=== PATIENT | female | born 2000 | race Caucasian/White ===

== ENCOUNTER 2023-06-29 05:16 | Inpatient (IN) ==
[2023-06-29] MEDS ORDERED: LIDOCAINE 1% LOCAL 20 ML VIAL INFIL PRN (06:01)
[2023-06-29] MEDS ORDERED: OXYTOCIN 30 UNITS/NSS 30 UNITS/500 ML BAG IV PRN (06:01)
[2023-06-29 06:44] LABS: Hematocrit (blood only) 33.8 % (37.0-47.0); Hemoglobin 11.1 g/dl (12.0-16.0); Mean Corpuscular Hemoglobin 29.1 pg (25.0-34.0); Mean Corpuscular Hgb Conc 32.8 g/dL (32.0-36.0); Mean Corpuscular Volume 88.7 fL (80.0-100.0); Mean Platelet Volume 12.1 fL (9.4-12.4); Platelet Count 159 K/uL (130-400); RDW Standard Deviation 45.4 fL (36.4-46.3); Red Blood Count 3.81 M/uL (4.20-5.40); White Blood Count 8.32 K/ul (4.8-10.8)
[2023-06-29] MEDS: LACTATED RINGER'S 1,000 ML IV PRN (07:35)
[2023-06-29] MEDS ORDERED: ROPIVACAINE 0.5% PF 5 MG/ML 20 ML VIAL EPI PRN (07:50)
[2023-06-29] MEDS ORDERED: BUPIVACAINE 0.25% PF 30 ML VIAL EPI PRN (07:50)
[2023-06-29] MEDS ORDERED: NALOXONE HCL 1 MG in SODIUM CHLORIDE 0.9% 1,000 ML IV PRN (07:50)
[2023-06-29] MEDS ORDERED: LIDOCAINE 2% MPF LOCAL 5 ML VIAL EPI PRN (07:50)
[2023-06-29] MEDS ORDERED: fentaNYL citrate PF 100 MCG/2 ML VIAL EPI PRN (07:50)
[2023-06-29] MEDS ORDERED: NALBUPHINE HCL 5 MG in SYRINGE 0 ML IV PRN (07:50)
[2023-06-29] MEDS ORDERED: SODIUM CHLORIDE 0.9% PF INJ 10 ML VIAL EPI PRN (07:50)
[2023-06-29] MEDS ORDERED: NALOXONE HCL 0.4 MG/1 ML VIAL/CARP IV PRN (07:50)
--- NOTE | 2023-06-29 07:50 | Anesthesiology Consultation ---
Date of Service June 29, 2023 Assessment & Plan ASA ASA2 Proposed Anesthesia Anesthesia Type: Labor Epidural Risk / Benefits Reviewed With: PT / POA / Parent / Guardian, Accepts Plan and Informed Consent Obtained History Height/Weight Height: 5 ft 3 in Weight: 69.4 kg Allergies Allergy/AdvReac Type Severity Reaction Status Date / Time No Known Allergies Allergy Verified 06/28/23 14:54 Medications Home Medications Medication Instructions Recorded Confirmed Last Taken levothyroxine 25 mcg capsule 50 mcg PO DAILY 11/09/22 06/29/23 06/28/23 vit no.95-ferrous 1 tab PO DAILY 11/09/22 06/29/23 06/28/23 fumarate 28 mg-folic acid 800 mcg tablet Active Medications Generic Name Dose Route Start Last Admin Trade Name Freq PRN Reason Stop Dose Admin Lactated Ringer's 1,000 mls @ 125 mls/hr 06/29/23 06:01 06/29/23 08:24 Lr IV 07/01/23 06:00 125 mls/hr .Q8H PRN Administration L&D Protocol Protocol Past Medical History Medical History Hypothyroid Endometriosis Depression with anxiety Varicella vaccination Exercise / Class Metabolic Activity II 4-5 Yardwork/Stairs/Walk up hill Past Family History Family History Grandmother (Maternal) Thyroid disease Denies family history of Ovarian cancer Breast cancer Colorectal cancer Past Surgical History Surgical History H/O laparoscopy 06/2022, e'osis History of tonsillectomy and adenoidectomy Status post surgery cat removed from leg S/P appendectomy S/P wisdom tooth extraction S/P dilatation and curettage x2 Past Anesthesia History No Hx of Anesthesia Complications and No Family Hx of Anesthesia Complications History of PONV No Hx of PONV and No Hx of Motion Sickness Social History Smoking Status: Never smoker Do You Dip or Chew Tobacco: No Hx Alcohol Use: No Hx Substance Use: No Review of Systems denies fever/cough/ colds/ chest pain/ SOB/ LALO denies LALO Physical Exam Vital Signs Last Vital Signs Temp 36.6 C 06/29/23 06:57 Pulse 98 H 06/29/23 08:38 Resp 20 06/29/23 06:57 BP 98/58 L 06/29/23 08:38 Pulse Ox 95 06/29/23 08:38 ENMT Mouth: no TMJ abnormality and no dentition abnormality Thyromental Distance: > or= 3.5 Finger Breadths Mallampati Class: II Neck neck extension not limited Respiratory normal respiratory effort; no respiratory distress Auscultation: lungs clear to auscultation bilaterally Cardiovascular Rate/Rhythm: regular rate and regular rhythm Neurologic moves all extremities Psychiatric Orientation: alert and oriented x 3 Testing Laboratory Results 06/29/23 06:21
[2023-06-29] MEDS: LIDOCAINE 2%/EPINEPHRINE 1:200,000 20 ML PF ONE (08:16)
[2023-06-29] MEDS: BUPIVACAINE 0.25% PF 30 ML VIAL ONE (08:16)
[2023-06-29] MEDS: fentaNYL citrate PF 100 MCG/2 ML VIAL ONE (08:17)
[2023-06-29] MEDS: fentANYL 2 MCG/ML BUPIVacaine 0.125%-NSS 100ML BAG ONE (08:18)
[2023-06-29] MEDS: ePHEDrine sulfate 50 MG/ML AMP ONE (08:37)
[2023-06-29] MEDS: SODIUM CHLORIDE 0.9% PF INJ 10 ML VIAL ONE (08:37)
[2023-06-29] MEDS: ONDANSETRON INJ 2 MG/ML 2 ML VIAL IV PRN (09:04)
[2023-06-29] MEDS: ePHEDrine sulfate 50 MG/ML AMP IV PRN (09:09)
[2023-06-29] MEDS: fentaNYL citrate PF 100 MCG/2 ML VIAL EPI STA (09:10)
[2023-06-29] MEDS: BUPIVACAINE 0.25% PF 30 ML VIAL EPI STA (09:10)
[2023-06-29] MEDS: SODIUM CHLORIDE 0.9% PF INJ 10 ML VIAL EPI STA (09:11)
[2023-06-29] MEDS: LIDOCAINE 2%/EPINEPHRINE 1:200,000 20 ML PF EPI STA (09:11)
--- NOTE | 2023-06-29 10:40 | History & Physical Report ---
Date of Service June 29, 2023 Assessment & Plan (1) Normal labor and delivery: Plan Patient is stable, with loss of fluid along with "bloody show" and loss of mucus plugh, contractions 7 min apart or further, with continued, observable movement. A CBC, blood bank hold tube, and oxytocin (2 mU/min starting dose, increase 2mU/min every 30 min until contractions every 2-3 min) has been ordered. Admission and Anticipated Discharge Date Admission Date: June 29, 2023 History of Present Illness Chief Complaint: normal labor Primary Care Provider: WANG PCP , 40 weeks, 5 days confirmed via LMP. Here for vaginal delivery. Complications with this include none. PMHx includes endometriosis, depression w/ anxiety, and a varicella vaccine. Has been attending OB appointments regularly. Currently taking levothyroxine, 25 mcg, daily and pre- vitamins. Contractions: yes, 7 min apart earlier this morning Fluid or Blood loss: patient thought her "water broke", mucus plug came out, had a "bloody show" Movement: active Labs - Blood type, A+ - Antibody screen, neg - Hgb, 11.1 - Hct, 33.8 - Wbc, 8.32 - Plt, 159 - Rubella, Immune - VDRL/RPR, neg - Gonorrhea, neg - Chlamydia, neg - HIV, neg - HbSAg, neg - GBS, neg - Glucose tolerance tests: test 2 and test 3 were WNL Allergies Allergy/AdvReac Type Severity Reaction Status Date / Time No Known Allergies Allergy Verified 06/28/23 14:54 Home Medications Medication Instructions Recorded Confirmed Type levothyroxine 25 mcg capsule 50 mcg PO DAILY 11/09/22 06/29/23 History vit no.95-ferrous 1 tab PO DAILY 11/09/22 06/29/23 History fumarate 28 mg-folic acid 800 mcg tablet Past Med/Surg History Medical History Hypothyroid Endometriosis Depression with anxiety Varicella vaccination Surgical History H/O laparoscopy 06/2022, e'osis History of tonsillectomy and adenoidectomy Status post surgery cat removed from leg S/P appendectomy S/P wisdom tooth extraction S/P dilatation and curettage x2 Family History Grandmother (Maternal) Thyroid disease Denies family history of Ovarian cancer Breast cancer Colorectal cancer Social History (Updated 11/09/22 @ 10:00 by Florence Whitley) Smoking Status: Never smoker Do You Dip or Chew Tobacco: No; Hx Alcohol Use: No Hx Substance Use: No Preferred Language: American Investor Relations Director Required: No Beliefs That Will Affect Care: None marital status: marital status details: Julio C Tony (25) [phone] Current Living Situation: Spouse Current Living Situation Comment: lives with spouse, cats-spouse changing litter current occupational status: employed current occupation: Paraprofessional [employer] Other Information That Helps Us Care for You: No Feels Safe at Home: Yes Safety Concerns: Feels Safe At This Time Assistive Devices: None Review of Systems Constitutional: no fever, no chills, no fatigue and no weakness Ear, Nose, Mouth, Throat: no ear pain, no nasal discharge and no sore throat Respiratory: no cough, no chest congestion and no dyspnea Cardiovascular: + chest pain (chest pain en route (felt like past anxiety- induced CP per pt)); no palpitations and no calf pain Gastrointestinal: + nausea; no abdominal pain, no vomiting , no constipation and no diarrhea/loose stools Genitourinary: no dysuria and no urinary frequency (normal -induced increase in freq) Neurologic: + tingling (numbness/tingling, dizziness after epidural placed), + numbness and + dizziness; no headache(s) Physical Exam Constitutional: WD/WN, vitals as above Respiratory: normal respiratory effort, lungs clear to auscultation Cardiovascular: RRR, no murmur, no edema Extremities: + calf tenderness (mild r. sided calf tenderness, feels like "charley horse") Gastrointestinal (Abdomen): Inspection/Auscultation: abdomen normal to inspection, + abdomen distended (due to ) and normal bowel sounds Psychiatric: A+Ox3, euthymic affect Results & Data Results & Data Vital Signs (Past 12 Hours) Vital Signs Temp Pulse Resp BP Pulse Ox 06/29/23 10:33 103 H 98 06/29/23 10:30 109 H 93/56 L 06/29/23 10:28 104 H 97 06/29/23 10:23 135 H 96 06/29/23 10:18 112 H 96 06/29/23 10:16 85 100/58 L 06/29/23 10:13 110 H 96 06/29/23 10:11 85 94 06/29/23 10:08 97 H 95 06/29/23 10:03 99 H 97 06/29/23 09:58 90 97 06/29/23 09:57 92 H 109/65 06/29/23 09:53 98 06/29/23 09:53 81 06/29/23 09:53 99 H 101/56 L 06/29/23 09:49 83 108/63 06/29/23 09:48 90 98 06/29/23 09:44 85 18 104/58 L 06/29/23 09:43 80 100 06/29/23 09:38 81 98 06/29/23 09:37 101 H 18 103/56 L 06/29/23 09:33 100 06/29/23 09:33 85 06/29/23 09:33 80 111/57 L 06/29/23 09:29 77 18 100/59 L 06/29/23 09:28 85 100 06/29/23 09:26 102 H 18 98/57 L 06/29/23 09:24 75 18 107/56 L 06/29/23 09:23 79 100 06/29/23 09:18 77 99 06/29/23 09:15 84 98/63 L 06/29/23 09:13 95 H 96 06/29/23 09:11 85 18 101/58 L 06/29/23 09:09 83 96/57 L 06/29/23 09:08 77 96 06/29/23 09:07 82 18 72/46 L 06/29/23 09:03 94 H 97 06/29/23 09:01 78 91 06/29/23 08:58 74 99 06/29/23 08:56 36.7 C 80 20 100/56 L 06/29/23 08:53 73 94 06/29/23 08:50 78 92 06/29/23 08:48 101 H 95 06/29/23 08:45 91 H 93 06/29/23 08:43 96 H 95 06/29/23 08:40 97 H 18 92/61 L 06/29/23 08:38 98 H 18 98/58 L 95 06/29/23 08:36 103 H 97/58 L 06/29/23 08:34 110 H 97/57 L 06/29/23 08:33 103 H 97 06/29/23 08:32 107 H 18 97/54 L 06/29/23 08:30 100 H 96/56 L 06/29/23 08:28 97 06/29/23 08:28 109 H 06/29/23 08:28 103 H 18 101/59 L 06/29/23 08:26 100 H 102/63 06/29/23 08:24 100 H 18 97/61 L 06/29/23 08:23 107 H 97 06/29/23 08:22 104 H 100/59 L 06/29/23 08:20 105 H 20 97/60 L 06/29/23 08:18 98 06/29/23 08:18 113 H 06/29/23 08:18 103 H 99/61 L 06/29/23 08:16 99 H 20 99/57 L 06/29/23 08:14 110 H 119/78 06/29/23 08:13 104 H 97 06/29/23 08:12 103 H 20 109/73 06/29/23 08:08 106 H 97 06/29/23 08:03 117 H 99 06/29/23 08:02 105 H 91 06/29/23 07:58 95 H 98 06/29/23 07:53 94 H 97 06/29/23 07:48 98 H 97 06/29/23 07:43 99 H 98 06/29/23 07:38 105 H 98 06/29/23 07:33 101 H 98 06/29/23 06:57 36.6 C 98 H 20 111/70 06/29/23 05:39 95 H 103/71 06/29/23 05:33 36.6 C 18 Code Status & VTE Plan VTE Prophylaxis Plan VTE Prophylaxis will be ordered: No Supervising Physician Co-Signing Physician Notes Resident Physician Supervision Note: I interviewed and examined the patient. Discussed with Dr. Castillo and agree with findings and plan as documented in the note. Any exceptions or clarifications are listed here: 23 yo at 40 5/7 wga who was scheduled for IOL today but presented early this AM with SROM and ctx. She was admitted and received an epidural. Most recent check by nursing 4cm showing progress, augment prn. GBS neg Documented By: Constance Bee MD
[2023-06-29] MEDS: OXYTOCIN 30 UNITS/NSS 30 UNITS/500 ML BAG IV PRN (14:58)
[2023-06-29] MEDS: fentANYL 2 MCG/ML BUPIVacaine 0.125%-NSS 100ML BAG EPI PRN (15:16)
--- NOTE | 2023-06-29 15:29 | Labor Progress Brief Note ---
Date of Service June 29, 2023 Subjective more uncomfortable Assessment & Plan (1) SROM (spontaneous rupture of membranes): Plan: 23 yo at 40 5/7 wga admitted w/ srom VSS Fetus cat 1 Labor - SVE unchanged on nursing exam, starting pit GBS neg epidural in place, anesthesia called due to pain worsening Admission and Anticipated Discharge Date Admission Date: June 29, 2023 Physical Exam Genitourinary: OB Exam Monitor Tracing: + external FHT monitor used, + external uterine monitor used and + category I SVE 4/80/-2 by nursing Results & Data Vital Signs (Past 12 Hours) Vital Signs Temp Pulse Resp BP Pulse Ox 06/29/23 15:23 115 H 95 06/29/23 15:18 92 H 97 06/29/23 15:14 117 H 103/58 L 06/29/23 15:13 121 H 96 06/29/23 15:08 120 H 96 06/29/23 15:03 87 97 06/29/23 15:00 98.4 F 113 H 18 109/66 06/29/23 14:58 95 H 97 06/29/23 14:53 110 H 95 06/29/23 14:48 107 H 96 06/29/23 14:45 117 H 111/54 L 06/29/23 14:43 125 H 97 06/29/23 14:38 111 H 96 06/29/23 14:35 89 94 06/29/23 14:33 110 H 94 06/29/23 14:30 106 H 94 06/29/23 14:29 100 H 18 98/54 L 06/29/23 14:28 103 H 94 06/29/23 14:24 112 H 94 06/29/23 14:23 109 H 94 06/29/23 14:19 91 H 94 06/29/23 14:18 91 H 94 06/29/23 14:15 91 H 98/55 L 06/29/23 14:14 90 94 06/29/23 14:13 122 H 94 06/29/23 14:08 116 H 95 06/29/23 14:06 109 H 94 06/29/23 14:03 93 H 94 06/29/23 14:01 93 H 94 06/29/23 13:59 86 20 103/55 L 06/29/23 13:58 105 H 94 06/29/23 13:56 87 94 06/29/23 13:53 93 H 93 06/29/23 13:49 93 H 94 06/29/23 13:48 89 95 06/29/23 13:44 92 H 95/54 L 06/29/23 13:43 94 06/29/23 13:43 92 H 06/29/23 13:43 100 H 93 06/29/23 13:38 105 H 94 06/29/23 13:37 113 H 94 06/29/23 13:33 95 H 94 06/29/23 13:31 92 H 94 06/29/23 13:29 92 H 100/52 L 06/29/23 13:28 86 95 06/29/23 13:23 108 H 94 06/29/23 13:22 97 H 94 06/29/23 13:18 90 95 06/29/23 13:16 93 H 108/56 L 06/29/23 13:13 113 H 97 06/29/23 13:08 115 H 95 06/29/23 13:03 111 H 94 06/29/23 13:02 108 H 94 06/29/23 13:01 98.4 F 106 H 20 103/57 L 05 12:58 103 H 95 06/29/23 12:57 94 H 94 06/29/23 12:53 96 H 95 06/29/23 12:51 97 H 94 06/29/23 12:48 103 H 94 06/29/23 12:46 88 105/61 06/29/23 12:45 101 H 94 06/29/23 12:43 112 H 94 06/29/23 12:39 103 H 94 06/29/23 12:38 112 H 95 06/29/23 12:33 94 H 95 06/29/23 12:30 103 H 99/55 L 05 12:28 99 H 96 06/29/23 12:24 101 H 94 06/29/23 12:23 106 H 94 06/29/23 12:19 106 H 94 06/29/23 12:18 105 H 95 06/29/23 12:14 86 05 12:14 88 99/59 L 94 06/29/23 12:13 87 94 06/29/23 12:08 95 06/29/23 12:08 104 H 06/29/23 12:08 106 H 94 06/29/23 12:03 95 06/29/23 12:03 112 H 06/29/23 12:03 107 H 94 06/29/23 12:00 100 H 94/52 L 06/29/23 11:58 88 96 06/29/23 11:55 99 H 94 06/29/23 11:53 109 H 96 06/29/23 11:48 117 H 98 06/29/23 11:44 114 H 112/68 06/29/23 11:43 112 H 97 06/29/23 11:38 118 H 97 06/29/23 11:37 99 H 94 06/29/23 11:33 95 H 94 06/29/23 11:32 100 H 94 06/29/23 11:30 107 H 103/66 06/29/23 11:28 98 H 94 06/29/23 11:27 99 H 94 06/29/23 11:23 105 H 96 06/29/23 11:21 91 H 94 06/29/23 11:18 104 H 96 06/29/23 11:15 83 20 116/72 06/29/23 11:13 94 H 96 06/29/23 11:08 98.2 F 109 H 20 96 06/29/23 11:03 90 97 06/29/23 10:59 123 H 98/56 L 06/29/23 10:58 109 H 96 06/29/23 10:53 112 H 97 06/29/23 10:48 112 H 97 06/29/23 10:45 117 H 98/57 L 06/29/23 10:43 95 H 100 06/29/23 10:38 120 H 98 06/29/23 10:33 103 H 98 06/29/23 10:30 109 H 93/56 L 06/29/23 10:28 104 H 97 06/29/23 10:23 135 H 96 06/29/23 10:18 112 H 96 06/29/23 10:16 85 100/58 L 06/29/23 10:13 110 H 96 06/29/23 10:11 85 94 06/29/23 10:08 97 H 95 06/29/23 10:03 99 H 97 06/29/23 09:58 90 97 06/29/23 09:57 92 H 109/65 06/29/23 09:53 98 06/29/23 09:53 81 06/29/23 09:53 99 H 101/56 L 06/29/23 09:49 83 108/63 06/29/23 09:48 90 98 06/29/23 09:44 85 18 104/58 L 06/29/23 09:43 80 100 06/29/23 09:38 81 98 06/29/23 09:37 101 H 18 103/56 L 06/29/23 09:33 100 06/29/23 09:33 85 06/29/23 09:33 80 111/57 L 06/29/23 09:29 77 18 100/59 L 06/29/23 09:28 85 100 06/29/23 09:26 102 H 18 98/57 L 06/29/23 09:24 75 18 107/56 L 06/29/23 09:23 79 100 06/29/23 09:18 77 99 06/29/23 09:15 84 98/63 L 06/29/23 09:13 95 H 96 06/29/23 09:11 85 18 101/58 L 06/29/23 09:09 83 96/57 L 06/29/23 09:08 77 96 06/29/23 09:07 82 18 72/46 L 06/29/23 09:03 94 H 97 06/29/23 09:01 78 91 06/29/23 08:58 74 99 06/29/23 08:56 98.1 F 80 20 100/56 L 06/29/23 08:53 73 94 06/29/23 08:50 78 92 06/29/23 08:48 101 H 95 06/29/23 08:45 91 H 93 06/29/23 08:43 96 H 95 06/29/23 08:40 97 H 18 92/61 L 06/29/23 08:38 98 H 18 98/58 L 95 06/29/23 08:36 103 H 97/58 L 06/29/23 08:34 110 H 97/57 L 06/29/23 08:33 103 H 97 06/29/23 08:32 107 H 18 97/54 L 06/29/23 08:30 100 H 96/56 L 06/29/23 08:28 97 03/05/24 08:28 109 H 06/29/23 08:28 103 H 18 101/59 L 06/29/23 08:26 100 H 102/63 06/29/23 08:24 100 H 18 97/61 L 06/29/23 08:23 107 H 97 06/29/23 08:22 104 H 100/59 L 06/29/23 08:20 105 H 20 97/60 L 06/29/23 08:18 98 06/29/23 08:18 113 H 06/29/23 08:18 103 H 99/61 L 06/29/23 08:16 99 H 20 99/57 L 06/29/23 08:14 110 H 119/78 06/29/23 08:13 104 H 97 06/29/23 08:12 103 H 20 109/73 06/29/23 08:08 106 H 97 06/29/23 08:03 117 H 99 06/29/23 08:02 105 H 91 06/29/23 07:58 95 H 98 06/29/23 07:53 94 H 97 06/29/23 07:48 98 H 97 06/29/23 07:43 99 H 98 06/29/23 07:38 105 H 98 06/29/23 07:33 101 H 98 06/29/23 06:57 97.9 F 98 H 20 111/70 06/29/23 05:39 95 H 103/71 06/29/23 05:33 97.9 F 18 Coding Level of Care Code None Diagnoses SROM (spontaneous rupture of membranes)
[2023-06-29] MEDS: diphenhydrAMINE 50 MG/ML VIAL IV PRN (18:36)
--- NOTE | 2023-06-29 20:30 | Labor Progress Brief Note ---
Date of Service June 29, 2023 Subjective comfortable w/ epidural, sleepy from benadryl Assessment & Plan (1) SROM (spontaneous rupture of membranes): Plan: 23 yo at 40 5/7 wga admitted w/ srom VSS Fetus cat 1 Labor - pit just increased to 12. Seems like swelling is unchanged from nursing exam few hours ago, SVE around 5-5.5 w/o ctx. Cervix is about 70% effaced around remainder but thicker around 12-3. Also labia are very swollen. Discussed concerns regarding the swelling but at this point she and baby look fine, has only been on pit since 3-4 o'clock. Will try to continue repositioning to see if will help GBS neg epidural in place Admission and Anticipated Discharge Date Admission Date: June 29, 2023 Physical Exam Genitourinary: Manual OB Exam: + cervical dilation 5 cm, + cervical effacement 70% (swelling on cervix from 12-3 o'clock that is thicker) and + station -1 OB Exam Monitor Tracing: + external FHT monitor used, + external uterine monitor used (q3) and + category I (140/mod/+accel/-decel) Results & Data Vital Signs (Past 12 Hours) Vital Signs Temp Pulse Resp BP Pulse Ox O2 Del Method 06/29/23 20:19 74 95 06/29/23 20:15 79 113/64 06/29/23 20:14 91 H 96 06/29/23 20:09 82 98 06/29/23 20:04 96 H 94 06/29/23 20:00 104 H 102/62 06/29/23 19:59 100 H 94 06/29/23 19:58 99 H 94 06/29/23 19:54 100 H 92 06/29/23 19:49 95 H 94 06/29/23 19:45 88 98/54 L 06/29/23 19:44 87 94 06/29/23 19:39 93 H 93 06/29/23 19:34 87 94 06/29/23 19:32 103 H 94 06/29/23 19:31 98 H 91/53 L 06/29/23 19:30 16 06/29/23 19:30 16 06/29/23 19:29 93 H 94 06/29/23 19:26 102 H 94 06/29/23 19:24 92 H 94 06/29/23 19:21 98 H 94 06/29/23 19:19 96 H 94 06/29/23 19:16 95 H 100/56 L 94 06/29/23 19:15 Room Air 06/29/23 19:14 89 96 06/29/23 19:09 93 H 96 06/29/23 19:04 120 H 93 06/29/23 19:03 96 H 94 06/29/23 19:02 16 06/29/23 19:02 99.3 F 16 06/29/23 19:00 92 H 117/76 06/29/23 18:59 89 93 06/29/23 18:58 105 H 94 06/29/23 18:54 92 H 92 06/29/23 18:51 114 H 94 06/29/23 18:49 100 H 94 06/29/23 18:45 104 H 113/69 06/29/23 18:44 89 93 06/29/23 18:43 106 H 94 06/29/23 18:39 82 98 06/29/23 18:37 96 H 94 06/29/23 18:34 93 H 96 06/29/23 18:30 89 115/68 06/29/23 18:29 89 96 06/29/23 18:27 101 H 94 06/29/23 18:24 91 H 96 06/29/23 18:20 104 H 94 06/29/23 18:19 94 H 95 06/29/23 18:15 127 H 94/53 L 06/29/23 18:14 127 H 95 06/29/23 18:13 104 H 94 06/29/23 18:09 124 H 96 06/29/23 18:07 101 H 94 06/29/23 18:04 109 H 95 06/29/23 18:02 99 H 94 06/29/23 17:59 99.1 F 110 H 20 101/55 L 94 06/29/23 17:55 92 H 94 06/29/23 17:54 108 H 95 06/29/23 17:49 106 H 95 06/29/23 17:48 113 H 94 06/29/23 17:44 102 H 103/58 L 95 06/29/23 17:42 109 H 94 06/29/23 17:39 102 H 96 06/29/23 17:37 98 H 94 06/29/23 17:34 99 H 95 /24 17:29 95 24 17:29 108 H 03 17:29 98 H 107/60 94 06/29/23 17:24 106 H 95 06/29/23 17:23 92 H 94 06/29/23 17:19 110 H 93 06/29/23 17:18 93 H 94 06/29/23 17:14 97 H 103/62 94 06/29/23 17:13 92 H 94 06/29/23 17:09 94 H 94 06/29/23 17:07 91 H 94 06/29/23 17:04 101 H 94 06/29/23 17:01 85 94 06/29/23 16:59 101 H 101/60 94 06/29/23 16:54 108 H 93 06/29/23 16:50 93 H 94 06/29/23 16:49 91 H 94 06/29/23 16:45 118 H 94 06/29/23 16:44 101 H 104/60 95 06/29/23 16:43 20 06/29/23 16:43 99.5 F 20 06/29/23 16:39 89 94 06/29/23 16:34 105 H 94 06/29/23 16:33 97 H 95 06/29/23 16:30 96 H 101/55 L 06/29/23 16:28 92 H 95 06/29/23 16:23 91 H 96 24 16:18 98 H 96 24 16:15 100 H 109/58 L 05 16:13 104 H 96 06/29/23 16:08 87 94 06/29/23 16:03 87 95 06/29/23 16:01 111 H 94 24 16:00 20 24 16:00 20 03/0524 15:59 101 H 20 110/67 03/05 15:58 93 H 96 24 15:53 93 H 96 24 15:52 111 H 94 /24 15:48 96 H 95 03/05/24 15:46 110 H 94 03/0524 15:45 100 H 109/66 03/0524 15:43 98 H 95 03/05/24 15:40 106 H 94 03 15:38 94 H 96 03 15:33 115 H 95 06/29/23 15:29 117 H 20 106/61 06/29/23 15:28 105 H 95 06/29/23 15:23 115 H 95 06/29/23 15:18 92 H 97 06/29/23 15:14 117 H 103/58 L 06/29/23 15:13 121 H 96 06/29/23 15:08 120 H 96 06/29/23 15:03 87 97 06/29/23 15:00 98.4 F 113 H 18 109/66 06/29/23 14:58 95 H 97 06/29/23 14:53 110 H 95 06/29/23 14:48 107 H 96 06/29/23 14:45 117 H 111/54 L 06/29/23 14:43 125 H 97 06/29/23 14:38 111 H 96 06/29/23 14:35 89 94 06/29/23 14:33 110 H 94 06/29/23 14:30 106 H 94 06/29/23 14:29 100 H 18 98/54 L 06/29/23 14:28 103 H 94 06/29/23 14:24 112 H 94 06/29/23 14:23 109 H 94 06/29/23 14:19 91 H 94 06/29/23 14:18 91 H 94 06/29/23 14:15 91 H 98/55 L 06/29/23 14:14 90 94 06/29/23 14:13 122 H 94 06/29/23 14:08 116 H 95 06/29/23 14:06 109 H 94 06/29/23 14:03 93 H 94 06/29/23 14:01 93 H 94 06/29/23 13:59 86 20 103/55 L 06/29/23 13:58 105 H 94 06/29/23 13:56 87 94 06/29/23 13:53 93 H 93 06/29/23 13:49 93 H 94 06/29/23 13:48 89 95 06/29/23 13:44 92 H 95/54 L 06/29/23 13:43 94 06/29/23 13:43 92 H 06/29/23 13:43 100 H 93 03/05/24 13:38 105 H 94 06/29/23 13:37 113 H 94 06/29/23 13:33 95 H 94 06/29/23 13:31 92 H 94 06/29/23 13:29 92 H 18 100/52 L 06/29/23 13:28 86 95 06/29/23 13:23 108 H 94 06/29/23 13:22 97 H 94 06/29/23 13:18 90 95 06/29/23 13:16 93 H 108/56 L 06/29/23 13:13 113 H 97 06/29/23 13:08 115 H 95 06/29/23 13:03 111 H 94 06/29/23 13:02 108 H 94 06/29/23 13:01 98.4 F 106 H 20 103/57 L 06/29/23 12:58 103 H 95 06/29/23 12:57 94 H 94 06/29/23 12:53 96 H 95 06/29/23 12:51 97 H 94 06/29/23 12:48 103 H 94 06/29/23 12:46 88 105/61 06/29/23 12:45 101 H 94 06/29/23 12:43 112 H 94 06/29/23 12:39 103 H 94 06/29/23 12:38 112 H 95 06/29/23 12:33 94 H 95 06/29/23 12:30 103 H 18 99/55 L 06/29/23 12:28 99 H 96 06/29/23 12:24 101 H 94 06/29/23 12:23 106 H 94 06/29/23 12:19 106 H 94 06/29/23 12:18 105 H 95 06/29/23 12:14 86 06/29/23 12:14 88 99/59 L 94 06/29/23 12:13 87 94 06/29/23 12:08 95 06/29/23 12:08 104 H 06/29/23 12:08 106 H 94 06/29/23 12:03 95 06/29/23 12:03 112 H 06/29/23 12:03 107 H 94 06/29/23 12:00 100 H 18 94/52 L 06/29/23 11:58 88 96 06/29/23 11:55 99 H 94 03/05/24 11:53 109 H 96 06/29/23 11:48 117 H 98 06/29/23 11:44 114 H 112/68 06/29/23 11:43 112 H 97 06/29/23 11:38 118 H 97 06/29/23 11:37 99 H 94 06/29/23 11:33 95 H 94 06/29/23 11:32 100 H 94 06/29/23 11:30 107 H 18 103/66 06/29/23 11:28 98 H 94 06/29/23 11:27 99 H 94 06/29/23 11:23 105 H 96 06/29/23 11:21 91 H 94 06/29/23 11:18 104 H 96 06/29/23 11:15 83 20 116/72 06/29/23 11:13 94 H 96 06/29/23 11:08 98.2 F 109 H 20 96 06/29/23 11:03 90 97 06/29/23 10:59 123 H 98/56 L 06/29/23 10:58 109 H 96 06/29/23 10:53 112 H 97 06/29/23 10:48 112 H 97 06/29/23 10:45 117 H 98/57 L 06/29/23 10:43 95 H 100 06/29/23 10:38 120 H 98 06/29/23 10:33 103 H 98 06/29/23 10:30 109 H 93/56 L 06/29/23 10:28 104 H 97 06/29/23 10:23 135 H 96 06/29/23 10:18 112 H 96 06/29/23 10:16 85 100/58 L 06/29/23 10:13 110 H 96 06/29/23 10:11 85 94 06/29/23 10:08 97 H 95 06/29/23 10:03 99 H 97 06/29/23 09:58 90 97 06/29/23 09:57 92 H 109/65 06/29/23 09:53 98 06/29/23 09:53 81 06/29/23 09:53 99 H 101/56 L 06/29/23 09:49 83 108/63 06/29/23 09:48 90 98 06/29/23 09:44 85 18 104/58 L 06/29/23 09:43 80 100 06/29/23 09:38 81 98 06/29/23 09:37 101 H 18 103/56 L 06/29/23 09:33 100 06/29/23 09:33 85 06/29/23 09:33 80 111/57 L 06/29/23 09:29 77 18 100/59 L 06/29/23 09:28 85 100 06/29/23 09:26 102 H 18 98/57 L 06/29/23 09:24 75 18 107/56 L 06/29/23 09:23 79 100 06/29/23 09:18 77 99 06/29/23 09:15 84 98/63 L 06/29/23 09:13 95 H 96 06/29/23 09:11 85 18 101/58 L 06/29/23 09:09 83 96/57 L 06/29/23 09:08 77 96 06/29/23 09:07 82 18 72/46 L 06/29/23 09:03 94 H 97 06/29/23 09:01 78 91 06/29/23 08:58 74 99 06/29/23 08:56 98.1 F 80 20 100/56 L 06/29/23 08:53 73 94 06/29/23 08:50 78 92 06/29/23 08:48 101 H 95 06/29/23 08:45 91 H 93 06/29/23 08:43 96 H 95 06/29/23 08:40 97 H 18 92/61 L 06/29/23 08:38 98 H 18 98/58 L 95 06/29/23 08:36 103 H 97/58 L 06/29/23 08:34 110 H 97/57 L 06/29/23 08:33 103 H 97 06/29/23 08:32 107 H 18 97/54 L 06/29/23 08:30 100 H 96/56 L 06/29/23 08:28 97 06/29/23 08:28 109 H 06/29/23 08:28 103 H 18 101/59 L 06/29/23 08:26 100 H 102/63 Coding Level of Care Code None Diagnoses SROM (spontaneous rupture of membranes)
--- NOTE | 2023-06-29 22:24 | Labor Progress Brief Note ---
Date of Service June 29, 2023 Subjective comfortable w/ epidural Assessment & Plan (1) SROM (spontaneous rupture of membranes): Plan: 23 yo at 40 5/7 [facility] admitted w/ srom VSS Fetus cat 2, improving Labor - pit at 14, swelling has improved, still a bit at the 12 o'clock but seems softer which is an improvement. I think dilation and station also demonstrate progress. Discussed fhr with variables, now seems recovered but a bit tachy, is afebrile - ?if just recovering from the decels earlier as seems to be improving. I do think there is progress and as baby is improving I think ok to continue induction and continue repositioning measures to see if will improve. Discussed if variables return and do not recover, would need to re- eval continued induction vs delivery for healthy baby. Pt and verb alized understanding and desire to continue GBS neg epidural in place Admission and Anticipated Discharge Date Admission Date: June 29, 2023 Physical Exam Genitourinary: Manual OB Exam: + cervical dilation 6 cm, + cervical effacement 80% (the swelling at 3 o'clock has improved greatly. 12 o'clock swelling still present but softer, I think an improvement) and + station 0 OB Exam Monitor Tracing: + external FHT monitor used, + external uterine monitor used (q3) and + category II (had 10min of variables that improved with repositioning. 155- 160/mod otherw) Results & Data Vital Signs (Past 12 Hours) Vital Signs Temp Pulse Resp BP Pulse Ox O2 Del Method 06/29/23 22:22 115 H 110/56 L 06/29/23 22:19 114 H 100 06/29/23 22:14 128 H 96 06/29/23 22:09 113 H 99 06/29/23 22:04 96 06/29/23 22:04 151 H 06/29/23 22:04 142 H 89 L 06/29/23 22:00 93 H 97/58 L 06/29/23 21:59 93 06/29/23 21:59 89 06/29/23 21:59 94 H 90 06/29/23 21:54 92 H 91 06/29/23 21:49 88 93 06/29/23 21:46 88 93/57 L 06/29/23 21:44 84 93 06/29/23 21:39 88 93 06/29/23 21:34 93 H 92 06/29/23 21:30 90 16 97/57 L 06/29/23 21:29 85 93 06/29/23 21:24 82 93 06/29/23 21:19 89 93 06/29/23 21:15 93 H 95/53 L 06/29/23 21:14 110 H 94 06/29/23 21:09 90 95 06/29/23 21:05 99.1 F 06/29/23 21:04 78 93 06/29/23 21:00 83 18 108/70 06/29/23 20:59 82 93 06/29/23 20:54 102 H 93 06/29/23 20:49 91 H 93 06/29/23 20:45 83 108/63 06/29/23 20:44 83 93 06/29/23 20:39 83 94 06/29/23 20:34 81 95 06/29/23 20:30 83 16 107/67 06/29/23 20:29 75 95 06/29/23 20:24 82 95 06/29/23 20:19 74 95 06/29/23 20:15 79 113/64 06/29/23 20:14 91 H 96 06/29/23 20:09 82 98 06/29/23 20:04 96 H 94 06/29/23 20:00 104 H 16 102/62 06/29/23 19:59 100 H 94 06/29/23 19:58 99 H 94 06/29/23 19:54 100 H 92 06/29/23 19:49 95 H 94 06/29/23 19:45 88 98/54 L 06/29/23 19:44 87 94 06/29/23 19:39 93 H 93 06/29/23 19:34 87 94 06/29/23 19:32 103 H 94 06/29/23 19:31 98 H 91/53 L 06/29/23 19:30 16 06/29/23 19:30 16 06/29/23 19:29 93 H 94 06/29/23 19:26 102 H 94 06/29/23 19:24 92 H 94 06/29/23 19:21 98 H 94 06/29/23 19:19 96 H 94 06/29/23 19:16 95 H 100/56 L 94 06/29/23 19:15 Room Air 06/29/23 19:14 89 96 06/29/23 19:09 93 H 96 06/29/23 19:04 120 H 93 06/29/23 19:03 96 H 94 06/29/23 19:02 16 06/29/23 19:02 99.3 F 16 06/29/23 19:00 92 H 117/76 06/29/23 18:59 89 93 06/29/23 18:58 105 H 94 06/29/23 18:54 92 H 92 06/29/23 18:51 114 H 94 06/29/23 18:49 100 H 94 06/29/23 18:45 104 H 113/69 06/29/23 18:44 89 93 06/29/23 18:43 106 H 94 06/29/23 18:39 82 98 06/29/23 18:37 96 H 94 06/29/23 18:34 93 H 96 06/29/23 18:30 89 115/68 06/29/23 18:29 89 96 06/29/23 18:27 101 H 94 06/29/23 18:24 91 H 96 06/29/23 18:20 104 H 94 06/29/23 18:19 94 H 95 06/29/23 18:15 127 H 94/53 L 06/29/23 18:14 127 H 95 06/29/23 18:13 104 H 94 06/29/23 18:09 124 H 96 06/29/23 18:07 101 H 94 06/29/23 18:04 109 H 95 06/29/23 18:02 99 H 94 06/29/23 17:59 99.1 F 110 H 20 101/55 L 94 06/29/23 17:55 92 H 94 06/29/23 17:54 108 H 95 06/29/23 17:49 106 H 95 06/29/23 17:48 113 H 94 06/29/23 17:44 102 H 103/58 L 95 06/29/23 17:42 109 H 94 06/29/23 17:39 102 H 96 06/29/23 17:37 98 H 94 06/29/23 17:34 99 H 95 06/29/23 17:29 95 06/29/23 17:29 108 H 06/29/23 17:29 98 H 107/60 94 03/05/24 17:24 106 H 95 03/0524 17:23 92 H 94 0305 17:19 110 H 93 03 17:18 93 H 94 03 17:14 97 H 103/62 94 24 17:13 92 H 94 03 17:09 94 H 94 06/29/23 17:07 91 H 94 06/29/23 17:04 101 H 94 06/29/23 17:01 85 94 0305 16:59 101 H 101/60 94 06/29/23 16:54 108 H 93 /09/16 16:50 93 H 94 03 16:49 91 H 94 06/29/23 16:45 118 H 94 06/29/23 16:44 101 H 104/60 95 /09/16 16:43 20 06/29/23 16:43 99.5 F 20 06/29/23 16:39 89 94 06/29/23 16:34 105 H 94 06/29/23 16:33 97 H 95 0524 16:30 96 H 101/55 L 0524 16:28 92 H 95 24 16:23 91 H 96 06/29/23 16:18 98 H 96 06/29/23 16:15 100 H 109/58 L 06/29/23 16:13 104 H 96 06/29/23 16:08 87 94 06/29/23 16:03 87 95 06/29/23 16:01 111 H 94 06/29/23 16:00 20 05 16:00 20 [id number] 15:59 101 H 20 110/67 03/05/24 15:58 93 H 96 03/05/24 15:53 93 H 96 /0524 15:52 111 H 94 030524 15:48 96 H 95 03/0524 15:46 110 H 94 03/0524 15:45 100 H 109/66 03/05/24 15:43 98 H 95 03/05/24 15:40 106 H 94 03/0524 15:38 94 H 96 03/0524 15:33 115 H 95 03/05/24 15:29 117 H 20 106/61 03 15:28 105 H 95 06/29/23 15:23 115 H 95 06/29/23 15:18 92 H 97 06/29/23 15:14 117 H 103/58 L 06/29/23 15:13 121 H 96 06/29/23 15:08 120 H 96 06/29/23 15:03 87 97 06/29/23 15:00 98.4 F 113 H 18 109/66 06/29/23 14:58 95 H 97 06/29/23 14:53 110 H 95 06/29/23 14:48 107 H 96 06/29/23 14:45 117 H 111/54 L 06/29/23 14:43 125 H 97 06/29/23 14:38 111 H 96 06/29/23 14:35 89 94 06/29/23 14:33 110 H 94 06/29/23 14:30 106 H 94 06/29/23 14:29 100 H 18 98/54 L 06/29/23 14:28 103 H 94 06/29/23 14:24 112 H 94 06/29/23 14:23 109 H 94 06/29/23 14:19 91 H 94 06/29/23 14:18 91 H 94 06/29/23 14:15 91 H 98/55 L 06/29/23 14:14 90 94 06/29/23 14:13 122 H 94 06/29/23 14:08 116 H 95 06/29/23 14:06 109 H 94 06/29/23 14:03 93 H 94 06/29/23 14:01 93 H 94 06/29/23 13:59 86 20 103/55 L 06/29/23 13:58 105 H 94 06/29/23 13:56 87 94 06/29/23 13:53 93 H 93 06/29/23 13:49 93 H 94 06/29/23 13:48 89 95 06/29/23 13:44 92 H 95/54 L 06/29/23 13:43 94 06/29/23 13:43 92 H 06/29/23 13:43 100 H 93 06/29/23 13:38 105 H 94 06/29/23 13:37 113 H 94 06/29/23 13:33 95 H 94 06/29/23 13:31 92 H 94 06/29/23 13:29 92 H 18 100/52 L 06/29/23 13:28 86 95 06/29/23 13:23 108 H 94 06/29/23 13:22 97 H 94 06/29/23 13:18 90 95 06/29/23 13:16 93 H 108/56 L 06/29/23 13:13 113 H 97 06/29/23 13:08 115 H 95 06/29/23 13:03 111 H 94 06/29/23 13:02 108 H 94 06/29/23 13:01 98.4 F 106 H 20 103/57 L 06/29/23 12:58 103 H 95 06/29/23 12:57 94 H 94 06/29/23 12:53 96 H 95 06/29/23 12:51 97 H 94 06/29/23 12:48 103 H 94 06/29/23 12:46 88 105/61 06/29/23 12:45 101 H 94 06/29/23 12:43 112 H 94 06/29/23 12:39 103 H 94 06/29/23 12:38 112 H 95 06/29/23 12:33 94 H 95 06/29/23 12:30 103 H 18 99/55 L 06/29/23 12:28 99 H 96 06/29/23 12:24 101 H 94 06/29/23 12:23 106 H 94 06/29/23 12:19 106 H 94 06/29/23 12:18 105 H 95 06/29/23 12:14 86 06/29/23 12:14 88 99/59 L 94 06/29/23 12:13 87 94 06/29/23 12:08 95 06/29/23 12:08 104 H 06/29/23 12:08 106 H 94 06/29/23 12:03 95 06/29/23 12:03 112 H 06/29/23 12:03 107 H 94 06/29/23 12:00 100 H 18 94/52 L 06/29/23 11:58 88 96 06/29/23 11:55 99 H 94 06/29/23 11:53 109 H 96 06/29/23 11:48 117 H 98 06/29/23 11:44 114 H 112/68 06/29/23 11:43 112 H 97 06/29/23 11:38 118 H 97 06/29/23 11:37 99 H 94 06/29/23 11:33 95 H 94 06/29/23 11:32 100 H 94 06/29/23 11:30 107 H 18 103/66 06/29/23 11:28 98 H 94 06/29/23 11:27 99 H 94 06/29/23 11:23 105 H 96 06/29/23 11:21 91 H 94 06/29/23 11:18 104 H 96 06/29/23 11:15 83 20 116/72 06/29/23 11:13 94 H 96 06/29/23 11:08 98.2 F 109 H 20 96 06/29/23 11:03 90 97 06/29/23 10:59 123 H 98/56 L 06/29/23 10:58 109 H 96 06/29/23 10:53 112 H 97 06/29/23 10:48 112 H 97 06/29/23 10:45 117 H 98/57 L 06/29/23 10:43 95 H 100 06/29/23 10:38 120 H 98 06/29/23 10:33 103 H 98 06/29/23 10:30 109 H 93/56 L 06/29/23 10:28 104 H 97 Coding Level of Care Code None Diagnoses SROM (spontaneous rupture of membranes)
[2023-06-29] MEDS: ACETAMINOPHEN 500 MG TAB PO PRN (22:36)
--- NOTE | 2023-06-30 02:17 | Labor Progress Brief Note ---
Date of Service June 30, 2023 Subjective comfortable w/ epidural Assessment & Plan (1) SROM (spontaneous rupture of membranes): Plan: 23 yo at 40 5/7 wga admitted w/ srom VSS Fetus cat 1 Labor - pit at 14, slow change but progress definitely made in dilation. 12 o'clock swelling still present but seems like it moves with the contraction. Baby better than at last check. Given progress I think ok to continue, pt desires to continue. Of note, labia swollen due to fluid, will try ice to see if helps GBS neg epidural in place Admission and Anticipated Discharge Date Admission Date: June 29, 2023 Physical Exam Genitourinary: Manual OB Exam: + cervical dilation (7-8), + cervical effacement 80% (swelling still noted at 12 o'clock, about the same as before) and + station 0 OB Exam Monitor Tracing: + external FHT monitor used, + external uterine monitor used (q3) and + category I (130-135/mod/+accel/-decel) Results & Data Vital Signs (Past 12 Hours) Vital Signs Temp Pulse Resp BP Pulse Ox O2 Del Method 06/30/23 02:09 94 H 103/65 96 06/30/23 02:04 102 H 97 06/30/23 01:59 79 94 06/30/23 01:54 95 06/30/23 01:54 79 06/30/23 01:54 80 108/65 06/30/23 01:49 94 H 95 06/30/23 01:44 81 96 06/30/23 01:39 75 95 06/30/23 01:38 92 H 113/74 06/30/23 01:34 83 94 06/30/23 01:30 16 06/30/23 01:30 16 06/30/23 01:29 78 95 06/30/23 01:24 95 06/30/23 01:24 78 06/30/23 01:24 76 116/72 06/30/23 01:19 82 95 06/30/23 01:14 78 95 06/30/23 01:09 76 96 06/30/23 01:08 77 117/65 06/30/23 01:04 91 H 96 06/30/23 01:00 18 06/30/23 01:00 18 06/30/23 00:59 79 96 06/30/23 00:55 90 116/55 L 06/30/23 00:54 98 H 96 06/30/23 00:49 84 92 06/30/23 00:44 86 94 06/30/23 00:39 82 94 06/30/23 00:38 80 106/62 06/30/23 00:34 83 95 06/30/23 00:30 18 06/30/23 00:30 18 06/30/23 00:29 84 93 06/30/23 00:25 87 102/62 06/30/23 00:24 90 93 06/30/23 00:19 79 94 06/30/23 00:14 100 H 96 06/30/23 00:09 86 94 06/30/23 00:08 87 109/55 L 06/30/23 00:04 90 94 06/30/23 00:00 16 06/30/23 00:00 16 06/29/23 23:59 87 95 06/29/23 23:54 92 H 94 06/29/23 23:53 87 104/59 L 06/29/23 23:49 90 95 06/29/23 23:44 88 95 06/29/23 23:40 94 H 105/62 06/29/23 23:39 87 96 06/29/23 23:38 97 H 99/57 L 06/29/23 23:35 98.1 F 06/29/23 23:34 120 H 97 06/29/23 23:30 18 06/29/23 23:30 18 06/29/23 23:29 114 H 97 06/29/23 23:24 97 06/29/23 23:24 103 H 06/29/23 23:24 98 H 107/70 06/29/23 23:19 101 H 97 06/29/23 23:14 95 H 96 06/29/23 23:10 82 118/72 06/29/23 23:09 89 96 06/29/23 23:04 107 H 97 06/29/23 23:00 18 06/29/23 23:00 18 06/29/23 22:59 109 H 98 06/29/23 22:54 112 H 108/65 98 06/29/23 22:49 99 H 97 06/29/23 22:44 104 H 98 06/29/23 22:39 118 H 100 06/29/23 22:38 113 H 110/56 L 06/29/23 22:34 122 H 93 06/29/23 22:30 18 06/29/23 22:30 18 06/29/23 22:29 114 H 98 06/29/23 22:24 115 H 98 06/29/23 22:22 115 H 110/56 L 06/29/23 22:19 114 H 100 06/29/23 22:18 98.6 F 06/29/23 22:14 128 H 96 06/29/23 22:09 113 H 99 06/29/23 22:04 96 06/29/23 22:04 151 H 06/29/23 22:04 142 H 89 L 06/29/23 22:00 93 H 18 97/58 L 06/29/23 21:59 93 06/29/23 21:59 89 06/29/23 21:59 94 H 90 06/29/23 21:54 92 H 91 06/29/23 21:49 88 93 06/29/23 21:46 88 93/57 L 06/29/23 21:44 84 93 06/29/23 21:39 88 93 06/29/23 21:34 93 H 92 06/29/23 21:30 90 16 97/57 L 06/29/23 21:29 85 93 06/29/23 21:24 82 93 06/29/23 21:19 89 93 06/29/23 21:15 93 H 95/53 L 06/29/23 21:14 110 H 94 06/29/23 21:09 90 95 06/29/23 21:05 99.1 F 06/29/23 21:04 78 93 06/29/23 21:00 83 18 108/70 06/29/23 20:59 82 93 06/29/23 20:54 102 H 93 06/29/23 20:49 91 H 93 06/29/23 20:45 83 108/63 06/29/23 20:44 83 93 06/29/23 20:39 83 94 06/29/23 20:34 81 95 06/29/23 20:30 83 16 107/67 06/29/23 20:29 75 95 06/29/23 20:24 82 95 06/29/23 20:19 74 95 06/29/23 20:15 79 113/64 06/29/23 20:14 91 H 96 06/29/23 20:09 82 98 06/29/23 20:04 96 H 94 06/29/23 20:00 104 H 16 102/62 06/29/23 19:59 100 H 94 06/29/23 19:58 99 H 94 06/29/23 19:54 100 H 92 06/29/23 19:49 95 H 94 06/29/23 19:45 88 98/54 L 06/29/23 19:44 87 94 06/29/23 19:39 93 H 93 06/29/23 19:34 87 94 06/29/23 19:32 103 H 94 06/29/23 19:31 98 H 91/53 L 06/29/23 19:30 16 06/29/23 19:30 16 06/29/23 19:29 93 H 94 06/29/23 19:26 102 H 94 06/29/23 19:24 92 H 94 06/29/23 19:21 98 H 94 06/29/23 19:19 96 H 94 06/29/23 19:16 95 H 100/56 L 94 06/29/23 19:15 Room Air 06/29/23 19:14 89 96 06/29/23 19:09 93 H 96 06/29/23 19:04 120 H 93 06/29/23 19:03 96 H 94 06/29/23 19:02 16 06/29/23 19:02 99.3 F 16 06/29/23 19:00 92 H 117/76 06/29/23 18:59 89 93 06/29/23 18:58 105 H 94 06/29/23 18:54 92 H 92 06/29/23 18:51 114 H 94 06/29/23 18:49 100 H 94 06/29/23 18:45 104 H 113/69 06/29/23 18:44 89 93 06/29/23 18:43 106 H 94 06/29/23 18:39 82 98 06/29/23 18:37 96 H 94 06/29/23 18:34 93 H 96 06/29/23 18:30 89 115/68 06/29/23 18:29 89 96 06/29/23 18:27 101 H 94 06/29/23 18:24 91 H 96 06/29/23 18:20 104 H 94 06/29/23 18:19 94 H 95 06/29/23 18:15 127 H 94/53 L 06/29/23 18:14 127 H 95 06/29/23 18:13 104 H 94 06/29/23 18:09 124 H 96 06/29/23 18:07 101 H 94 06/29/23 18:04 109 H 95 06/29/23 18:02 99 H 94 06/29/23 17:59 99.1 F 110 H 20 101/55 L 94 06/29/23 17:55 92 H 94 06/29/23 17:54 108 H 95 06/29/23 17:49 106 H 95 06/29/23 17:48 113 H 94 06/29/23 17:44 102 H 103/58 L 95 06/29/23 17:42 109 H 94 06/29/23 17:39 102 H 96 06/29/23 17:37 98 H 94 06/29/23 17:34 99 H 95 06/29/23 17:29 95 06/29/23 17:29 108 H 06/29/23 17:29 98 H 107/60 94 06/29/23 17:24 106 H 95 06/29/23 17:23 92 H 94 06/29/23 17:19 110 H 93 06/29/23 17:18 93 H 94 06/29/23 17:14 97 H 103/62 94 06/29/23 17:13 92 H 94 06/29/23 17:09 94 H 94 06/29/23 17:07 91 H 94 06/29/23 17:04 101 H 94 06/29/23 17:01 85 94 06/29/23 16:59 101 H 101/60 94 24 16:54 108 H 93 06/29/23 16:50 93 H 94 06/29/23 16:49 91 H 94 06/29/23 16:45 118 H 94 06/29/23 16:44 101 H 104/60 95 06/29/23 16:43 20 06/29/23 16:43 99.5 F 20 06/29/23 16:39 89 94 06/29/23 16:34 105 H 94 06/29/23 16:33 97 H 95 03/05/24 16:30 96 H 101/55 L 06/29/23 16:28 92 H 95 06/29/23 16:23 91 H 96 06/29/23 16:18 98 H 96 06/29/23 16:15 100 H 109/58 L 06/29/23 16:13 104 H 96 06/29/23 16:08 87 94 06/29/23 16:03 87 95 06/29/23 16:01 111 H 94 06/29/23 16:00 20 06/29/23 16:00 20 06/29/23 15:59 101 H 20 110/67 03 15:58 93 H 96 06/29/23 15:53 93 H 96 06/29/23 15:52 111 H 94 06/29/23 15:48 96 H 95 06/29/23 15:46 110 H 94 06/29/23 15:45 100 H 109/66 06/29/23 15:43 98 H 95 06/29/23 15:40 106 H 94 06/29/23 15:38 94 H 96 06/29/23 15:33 115 H 95 06/29/23 15:29 117 H 20 106/61 03/09/16 15:28 105 H 95 06/29/23 15:23 115 H 95 06/29/23 15:18 92 H 97 06/29/23 15:14 117 H 103/58 L 06/29/23 15:13 121 H 96 06/29/23 15:08 120 H 96 06/29/23 15:03 87 97 06/29/23 15:00 98.4 F 113 H 18 109/66 06/29/23 14:58 95 H 97 06/29/23 14:53 110 H 95 06/29/23 14:48 107 H 96 06/29/23 14:45 117 H 111/54 L 06/29/23 14:43 125 H 97 06/29/23 14:38 111 H 96 06/29/23 14:35 89 94 06/29/23 14:33 110 H 94 06/29/23 14:30 106 H 94 24 14:29 100 H 18 98/54 L 05 14:28 103 H 94 06/29/23 14:24 112 H 94 06/29/23 14:23 109 H 94 06/29/23 14:19 91 H 94 06/29/23 14:18 91 H 94 06/29/23 14:15 91 H 98/55 L 06/29/23 14:14 90 94 06/29/23 14:13 122 H 94 Coding Level of Care Code None Diagnoses SROM (spontaneous rupture of membranes)
[2023-06-30] MEDS: diphenhydrAMINE 50 MG/ML VIAL IV STA (02:30)
[2023-06-30] MEDS: NURSING L&D Epidural Breakthrough Pain Update ONE (07:24)
--- NOTE | 2023-06-30 07:28 | Labor Progress Brief Note ---
Date of Service June 30, 2023 Subjective comfortable, some pressure Assessment & Plan (1) SROM (spontaneous rupture of membranes): Plan: 23 yo at 40 5/7 wga admitted w/ srom VSS Fetus cat 1 Labor - pit at 18, just has the anterior lip. in b/w ctx, that lip can be pushed away slightly which is reassuring. Is slightly thicker still but I think better than last exam. Progress in station as well. Will continue to try maneuvers to help move that cervix away GBS neg epidural in place Admission and Anticipated Discharge Date Admission Date: June 29, 2023 Physical Exam Genitourinary: Manual OB Exam: + cervical dilation (9.5 - anterior lip), + cervical effacement 90% and + station 0 and + 1 OB Exam Monitor Tracing: + external FHT monitor used, + external uterine monitor used (q3) and + category II (155/mod/+accel/-occ variable) Results & Data Vital Signs (Past 12 Hours) Vital Signs Temp Pulse Resp BP Pulse Ox 06/30/23 07:19 106 H 96 06/30/23 07:14 104 H 96 06/30/23 07:12 16 06/30/23 07:12 98.6 F 16 06/30/23 07:10 113 H 95/52 L 06/30/23 07:09 117 H 97 06/30/23 07:04 126 H 98 06/30/23 07:00 16 06/30/23 07:00 16 06/30/23 07:00 16 06/30/23 07:00 16 06/30/23 06:59 105 H 97 06/30/23 06:54 107 H 106/68 97 06/30/23 06:49 86 97 06/30/23 06:44 97 H 96 06/30/23 06:39 96 H 109/67 96 06/30/23 06:34 129 H 84 L 06/30/23 06:30 18 06/30/23 06:30 18 06/30/23 06:29 113 H 97 06/30/23 06:24 115 H 97 06/30/23 06:23 114 H 111/70 06/30/23 06:19 119 H 96 06/30/23 06:15 98.8 F 06/30/23 06:14 126 H 94 06/30/23 06:09 96 06/30/23 06:09 116 H 06/30/23 06:09 118 H 112/72 06/30/23 06:04 111 H 97 06/30/23 06:00 18 06/30/23 06:00 18 06/30/23 05:59 107 H 96 06/30/23 05:54 103 H 97 06/30/23 05:53 118 H 107/65 06/30/23 05:49 103 H 97 06/30/23 05:44 110 H 96 06/30/23 05:39 100 06/30/23 05:39 118 H 06/30/23 05:39 113 H 105/68 06/30/23 05:34 121 H 100 06/30/23 05:30 18 06/30/23 05:30 18 06/30/23 05:29 130 H 100 06/30/23 05:24 118 H 97 06/30/23 05:23 130 H 107/62 06/30/23 05:19 86 94 06/30/23 05:14 80 94 06/30/23 05:09 94 06/30/23 05:09 83 06/30/23 05:09 81 102/58 L 06/30/23 05:04 81 93 06/30/23 05:00 16 06/30/23 05:00 16 06/30/23 04:59 82 94 06/30/23 04:54 93 H 95 06/30/23 04:53 93 H 104/65 06/30/23 04:49 75 94 06/30/23 04:44 79 94 06/30/23 04:40 80 108/66 06/30/23 04:39 76 96 06/30/23 04:34 79 97 06/30/23 04:30 16 06/30/23 04:30 16 06/30/23 04:29 81 97 06/30/23 04:24 94 H 97 06/30/23 04:23 82 99/61 L 06/30/23 04:19 81 96 06/30/23 04:15 98.6 F 06/30/23 04:14 93 H 97 06/30/23 04:11 93 H 97/61 L 06/30/23 04:09 124 H 95 06/30/23 04:04 91 H 98 06/30/23 04:00 16 06/30/23 04:00 16 06/30/23 03:59 88 94 06/30/23 03:54 94 06/30/23 03:54 83 06/30/23 03:54 75 107/62 06/30/23 03:49 94 H 95 06/30/23 03:44 93 H 94 06/30/23 03:39 92 H 98/54 L 94 06/30/23 03:34 83 94 06/30/23 03:29 93 H 93 06/30/23 03:24 94 06/30/23 03:24 88 06/30/23 03:24 80 99/51 L 06/30/23 03:19 93 H 93 06/30/23 03:14 86 93 06/30/23 03:09 88 91/55 L 93 06/30/23 03:04 109 H 94 06/30/23 02:59 94 H 92 06/30/23 02:54 94 H 94 06/30/23 02:53 94 H 90/54 L 06/30/23 02:49 87 94 06/30/23 02:44 94 H 93 06/30/23 02:39 94 06/30/23 02:39 94 H 06/30/23 02:39 88 100/57 L 06/30/23 02:34 89 93 06/30/23 02:30 16 06/30/23 02:30 16 06/30/23 02:29 94 H 95 06/30/23 02:24 97 H 95 06/30/23 02:23 89 88/53 L 06/30/23 02:19 99 H 95 06/30/23 02:14 104 H 96 06/30/23 02:10 98.2 F 06/30/23 02:09 94 H 103/65 96 06/30/23 02:04 102 H 97 06/30/23 02:00 18 06/30/23 02:00 18 06/30/23 01:59 79 94 06/30/23 01:54 95 06/30/23 01:54 79 06/30/23 01:54 80 108/65 06/30/23 01:49 94 H 95 06/30/23 01:44 81 96 06/30/23 01:39 75 95 06/30/23 01:38 92 H 113/74 06/30/23 01:34 83 94 06/30/23 01:30 16 06/30/23 01:30 16 06/30/23 01:29 78 95 06/30/23 01:24 95 06/30/23 01:24 78 06/30/23 01:24 76 116/72 06/30/23 01:19 82 95 06/30/23 01:14 78 95 06/30/23 01:09 76 96 06/30/23 01:08 77 117/65 06/30/23 01:04 91 H 96 06/30/23 01:00 18 06/30/23 01:00 18 06/30/23 00:59 79 96 06/30/23 00:55 90 116/55 L 06/30/23 00:54 98 H 96 06/30/23 00:49 84 92 06/30/23 00:44 86 94 06/30/23 00:39 82 94 06/30/23 00:38 80 106/62 06/30/23 00:34 83 95 06/30/23 00:30 18 06/30/23 00:30 18 06/30/23 00:29 84 93 06/30/23 00:25 87 102/62 06/30/23 00:24 90 93 06/30/23 00:19 79 94 06/30/23 00:14 100 H 96 06/30/23 00:09 86 94 06/30/23 00:08 87 109/55 L 06/30/23 00:04 90 94 06/30/23 00:00 16 06/30/23 00:00 16 06/29/23 23:59 87 95 06/29/23 23:54 92 H 94 06/29/23 23:53 87 104/59 L 06/29/23 23:49 90 95 06/29/23 23:44 88 95 06/29/23 23:40 94 H 105/62 06/29/23 23:39 87 96 06/29/23 23:38 97 H 99/57 L 06/29/23 23:35 98.1 F 06/29/23 23:34 120 H 97 06/29/23 23:30 18 06/29/23 23:30 18 06/29/23 23:29 114 H 97 06/29/23 23:24 97 06/29/23 23:24 103 H 06/29/23 23:24 98 H 107/70 06/29/23 23:19 101 H 97 06/29/23 23:14 95 H 96 06/29/23 23:10 82 118/72 06/29/23 23:09 89 96 06/29/23 23:04 107 H 97 06/29/23 23:00 18 06/29/23 23:00 18 06/29/23 22:59 109 H 98 06/29/23 22:54 112 H 108/65 98 06/29/23 22:49 99 H 97 06/29/23 22:44 104 H 98 06/29/23 22:39 118 H 100 06/29/23 22:38 113 H 110/56 L 06/29/23 22:34 122 H 93 06/29/23 22:30 18 06/29/23 22:30 18 06/29/23 22:29 114 H 98 06/29/23 22:24 115 H 98 06/29/23 22:22 115 H 110/56 L 06/29/23 22:19 114 H 100 06/29/23 22:18 98.6 F 06/29/23 22:14 128 H 96 06/29/23 22:09 113 H 99 06/29/23 22:04 96 06/29/23 22:04 151 H 06/29/23 22:04 142 H 89 L 06/29/23 22:00 93 H 18 97/58 L 06/29/23 21:59 93 06/29/23 21:59 89 06/29/23 21:59 94 H 90 06/29/23 21:54 92 H 91 06/29/23 21:49 88 93 06/29/23 21:46 88 93/57 L 06/29/23 21:44 84 93 06/29/23 21:39 88 93 06/29/23 21:34 93 H 92 06/29/23 21:30 90 16 97/57 L 06/29/23 21:29 85 93 06/29/23 21:24 82 93 06/29/23 21:19 89 93 06/29/23 21:15 93 H 95/53 L 06/29/23 21:14 110 H 94 06/29/23 21:09 90 95 06/29/23 21:05 99.1 F 06/29/23 21:04 78 93 06/29/23 21:00 83 18 108/70 06/29/23 20:59 82 93 06/29/23 20:54 102 H 93 06/29/23 20:49 91 H 93 06/29/23 20:45 83 108/63 06/29/23 20:44 83 93 06/29/23 20:39 83 94 06/29/23 20:34 81 95 06/29/23 20:30 83 16 107/67 06/29/23 20:29 75 95 06/29/23 20:24 82 95 06/29/23 20:19 74 95 06/29/23 20:15 79 113/64 06/29/23 20:14 91 H 96 06/29/23 20:09 82 98 06/29/23 20:04 96 H 94 06/29/23 20:00 104 H 16 102/62 06/29/23 19:59 100 H 94 06/29/23 19:58 99 H 94 06/29/23 19:54 100 H 92 06/29/23 19:49 95 H 94 06/29/23 19:45 88 98/54 L 06/29/23 19:44 87 94 06/29/23 19:39 93 H 93 06/29/23 19:34 87 94 06/29/23 19:32 103 H 94 06/29/23 19:31 98 H 91/53 L 06/29/23 19:30 16 06/29/23 19:30 16 06/29/23 19:29 93 H 94 06/29/23 19:26 102 H 94 06/29/23 19:24 92 H 94 Coding Level of Care Code None Diagnoses SROM (spontaneous rupture of membranes)
--- NOTE | 2023-06-30 12:58 | Labor Progress Brief Note ---
Date of Service June 30, 2023 Subjective Reason For Note: Routine Evaluation cervix exam: complete /100/+1 most likely OP presentation FHRT - severe variables when in any position except patient's right side. episodes of tachycardia as well. pitocin was stopped and restarted because of a series of severe variables but then good recovery initial attempts at pushing were not successful as pitocin was now at half the dose prior to variables. after the fetus has had time to rescusitate, and contraction pattern is more consistent , will start pushing again. Review of Systems All systems reviewed & are unremarkable except as noted in HPI & below Assessment & Plan Admission and Anticipated Discharge Date Admission Date: June 29, 2023 Results & Data Vital Signs (Past 12 Hours) Vital Signs Temp Pulse Resp BP Pulse Ox 06/30/23 12:51 103 H 84 L 06/30/23 12:50 107 H 96 06/30/23 12:45 98 H 94 06/30/23 12:40 94 06/30/23 12:40 93 H 06/30/23 12:40 90 100/58 L 06/30/23 12:35 103 H 93 06/30/23 12:30 103 H 95 06/30/23 12:25 100 H 94 06/30/23 12:23 100 H 105/60 06/30/23 12:20 94 H 95 06/30/23 12:15 123 H 91 06/30/23 12:10 94 H 93 06/30/23 12:09 83 104/59 L 06/30/23 12:05 94 H 93 06/30/23 12:00 91 H 20 93 06/30/23 11:55 93 06/30/23 11:55 93 H 06/30/23 11:55 84 100/55 L 06/30/23 11:50 97 H 94 06/30/23 11:45 94 H 95 06/30/23 11:40 102 H 95 06/30/23 11:38 96 H 101/58 L 06/30/23 11:35 99 H 95 06/30/23 11:30 98 H 96 06/30/23 11:25 89 95 06/30/23 11:23 88 99/59 L 06/30/23 11:20 100 H 95 06/30/23 11:15 101 H 96 06/30/23 11:10 120 H 97 06/30/23 11:09 125 H 102/56 L 06/30/23 11:05 98 06/30/23 11:05 153 H 06/30/23 11:05 126 H 87 L 06/30/23 11:00 113 H 91 06/30/23 10:58 123 H 88 L 06/30/23 10:57 107 H 117/57 L 06/30/23 10:55 122 H 97 06/30/23 10:50 114 H 95 06/30/23 10:46 109 H 89 L 06/30/23 10:45 109 H 92 06/30/23 10:40 103 H 96 06/30/23 10:39 99 H 89 L 06/30/23 10:35 104 H 96 06/30/23 10:33 105 H 88 L 06/30/23 10:30 142 H 79 L 06/30/23 10:25 97 H 100 06/30/23 10:24 120 H 114/77 06/30/23 10:20 105 H 100 06/30/23 10:15 102 H 99 06/30/23 10:10 95 H 99 06/30/23 10:08 98 H 99/60 L 06/30/23 10:05 93 H 99 06/30/23 10:00 98 H 99 06/30/23 09:55 86 100 06/30/23 09:54 98 H 101/65 06/30/23 09:50 88 100 06/30/23 09:45 99 H 100 06/30/23 09:40 100 H 100 06/30/23 09:39 97 H 103/62 06/30/23 09:35 105 H 100 06/30/23 09:30 91 H 100 06/30/23 09:25 96 06/30/23 09:25 107 H 06/30/23 09:25 90 108/59 L 06/30/23 09:20 131 H 92 06/30/23 09:15 87 96 06/30/23 09:10 89 97 06/30/23 09:09 92 H 101/64 06/30/23 09:05 93 H 96 06/30/23 09:00 92 H 97 06/30/23 08:57 16 06/30/23 08:57 98.6 F 16 06/30/23 08:55 80 97 06/30/23 08:54 86 103/68 06/30/23 08:50 89 96 06/30/23 08:45 93 H 98 06/30/23 08:40 105 H 95 06/30/23 08:39 119 H 85 L 06/30/23 08:38 109/76 06/30/23 08:35 96 H 95 06/30/23 08:34 16 06/30/23 08:34 16 06/30/23 08:30 102 H 94 06/30/23 08:25 94 H 94 06/30/23 08:23 92 H 107/72 06/30/23 08:20 96 H 94 06/30/23 08:17 128 H 85 L 06/30/23 08:15 111 H 94 06/30/23 08:10 103 H 98 06/30/23 08:09 96 H 107/69 06/30/23 08:04 93 H 95 06/30/23 07:59 88 95 06/30/23 07:54 97 06/30/23 07:54 89 06/30/23 07:54 105 H 107/71 06/30/23 07:49 117 H 95 06/30/23 07:44 111 H 87 L 06/30/23 07:39 96 H 108/65 95 06/30/23 07:34 98 H 94 06/30/23 07:29 104 H 94 06/30/23 07:24 107 H 98/59 L 94 06/30/23 07:19 106 H 96 06/30/23 07:14 104 H 96 06/30/23 07:12 16 06/30/23 07:12 98.6 F 16 06/30/23 07:10 113 H 95/52 L 06/30/23 07:09 117 H 97 06/30/23 07:04 126 H 98 06/30/23 07:00 16 06/30/23 07:00 16 06/30/23 07:00 16 06/30/23 07:00 16 06/30/23 06:59 105 H 97 06/30/23 06:54 107 H 106/68 97 06/30/23 06:49 86 97 06/30/23 06:44 97 H 96 06/30/23 06:39 96 H 109/67 96 06/30/23 06:34 129 H 84 L 06/30/23 06:30 18 06/30/23 06:30 18 06/30/23 06:29 113 H 97 06/30/23 06:24 115 H 97 06/30/23 06:23 114 H 111/70 06/30/23 06:19 119 H 96 06/30/23 06:15 98.8 F 06/30/23 06:14 126 H 94 06/30/23 06:09 96 06/30/23 06:09 116 H 06/30/23 06:09 118 H 112/72 06/30/23 06:04 111 H 97 06/30/23 06:00 18 06/30/23 06:00 18 06/30/23 05:59 107 H 96 06/30/23 05:54 103 H 97 06/30/23 05:53 118 H 107/65 06/30/23 05:49 103 H 97 06/30/23 05:44 110 H 96 06/30/23 05:39 100 06/30/23 05:39 118 H 06/30/23 05:39 113 H 105/68 06/30/23 05:34 121 H 100 06/30/23 05:30 18 06/30/23 05:30 18 06/30/23 05:29 130 H 100 06/30/23 05:24 118 H 97 06/30/23 05:23 130 H 107/62 06/30/23 05:19 86 94 06/30/23 05:14 80 94 06/30/23 05:09 94 06/30/23 05:09 83 06/30/23 05:09 81 102/58 L 06/30/23 05:04 81 93 06/30/23 05:00 16 06/30/23 05:00 16 06/30/23 04:59 82 94 06/30/23 04:54 93 H 95 06/30/23 04:53 93 H 104/65 06/30/23 04:49 75 94 06/30/23 04:44 79 94 06/30/23 04:40 80 108/66 06/30/23 04:39 76 96 06/30/23 04:34 79 97 06/30/23 04:30 16 06/30/23 04:30 16 06/30/23 04:29 81 97 06/30/23 04:24 94 H 97 06/30/23 04:23 82 99/61 L 06/30/23 04:19 81 96 06/30/23 04:15 98.6 F 06/30/23 04:14 93 H 97 06/30/23 04:11 93 H 97/61 L 06/30/23 04:09 124 H 95 06/30/23 04:04 91 H 98 06/30/23 04:00 16 06/30/23 04:00 16 06/30/23 03:59 88 94 06/30/23 03:54 94 06/30/23 03:54 83 06/30/23 03:54 75 107/62 06/30/23 03:49 94 H 95 06/30/23 03:44 93 H 94 06/30/23 03:39 92 H 98/54 L 94 06/30/23 03:34 83 94 06/30/23 03:29 93 H 93 06/30/23 03:24 94 06/30/23 03:24 88 06/30/23 03:24 80 99/51 L 06/30/23 03:19 93 H 93 06/30/23 03:14 86 93 06/30/23 03:09 88 91/55 L 93 06/30/23 03:04 109 H 94 06/30/23 02:59 94 H 92 06/30/23 02:54 94 H 94 06/30/23 02:53 94 H 90/54 L 06/30/23 02:49 87 94 06/30/23 02:44 94 H 93 06/30/23 02:39 94 06/30/23 02:39 94 H 06/30/23 02:39 88 100/57 L 06/30/23 02:34 89 93 06/30/23 02:30 16 06/30/23 02:30 16 06/30/23 02:29 94 H 95 06/30/23 02:24 97 H 95 06/30/23 02:23 89 88/53 L 06/30/23 02:19 99 H 95 06/30/23 02:14 104 H 96 06/30/23 02:10 98.2 F 06/30/23 02:09 94 H 103/65 96 06/30/23 02:04 102 H 97 06/30/23 02:00 18 06/30/23 02:00 18 06/30/23 01:59 79 94 06/30/23 01:54 95 06/30/23 01:54 79 06/30/23 01:54 80 108/65 06/30/23 01:49 94 H 95 06/30/23 01:44 81 96 06/30/23 01:39 75 95 06/30/23 01:38 92 H 113/74 06/30/23 01:34 83 94 06/30/23 01:30 16 06/30/23 01:30 16 06/30/23 01:29 78 95 06/30/23 01:24 95 06/30/23 01:24 78 06/30/23 01:24 76 116/72 06/30/23 01:19 82 95 06/30/23 01:14 78 95 06/30/23 01:09 76 96 06/30/23 01:08 77 117/65 06/30/23 01:04 91 H 96 06/30/23 01:00 18 06/30/23 01:00 18 06/30/23 00:59 79 96 06/30/23 00:55 90 116/55 L 06/30/23 00:54 98 H 96
[2023-06-30] MEDS ORDERED: DEXAMETHASONE SOD INJ 4 MG/ML VIAL ONE (13:41)
[2023-06-30] MEDS ORDERED: ONDANSETRON INJ 2 MG/ML 2 ML VIAL ONE (13:41)
[2023-06-30] MEDS ORDERED: LIDOCAINE 2%/EPINEPHRINE 1:200,000 20 ML PF ONE (13:41)
[2023-06-30] MEDS ORDERED: OXYTOCIN 10 UNITS/ML VIAL ONE (13:41)
[2023-06-30] MEDS ORDERED: KETOROLAC 30 MG/ML VIAL ONE (13:41)
[2023-06-30] MEDS ORDERED: MoRPHine SULFATE PF 1 MG/ML 10 ML AMP/VIAL ONE (13:42)
--- NOTE | 2023-06-30 13:51 | Communication Note ---
Date of Service: June 30, 2023 OB made decision to proceed with c/s due to failure to progress. Epidural working well. Will plan to use epidural for anesthesia with back up plan of GA. ASA 2E.
[2023-06-30] MEDS: ceFAZolin 3000MG 3,000 MG/72.5 ML BAG IV SCH (13:56)
[2023-06-30] MEDS: AZITHROMYCIN 500 MG in DEXTROSE 5% 250 ML IV SCH (13:59)
--- NOTE | 2023-06-30 14:01 | Labor Progress Brief Note ---
Date of Service June 30, 2023 Subjective Reason For Note: Change In Status Pitocin is now at 16 milliunits/h. heart tracing still shows moderate to severe variables with an elevated baseline now was 70 bpm. Patient's temp is 37.6. Patient has continued to attempt pushing with minimal descent of the head. There is caput now at +2 station. After discussion with the patient and her , we have elected to try a vacuum attempt to bring the head down. After emptying her bladder by straight cath for a few cc of urine, a Kiwi vacuum was placed on the head and through 1 contraction attempt was made to bring further descent of the head. There was no change in position and therefore we will proceed with primary section. Procedure and its risks were reviewed with the patient and all questions were answered to their satisfaction. Assessment & Plan Admission and Anticipated Discharge Date Admission Date: June 29, 2023 Results & Data Vital Signs (Past 12 Hours) Vital Signs Temp Pulse Resp BP Pulse Ox 06/30/23 13:53 134 H 114/59 L 06/30/23 13:52 139 H 98 06/30/23 13:47 139 H 92 06/30/23 13:42 154 H 97 06/30/23 13:38 136 H 115/72 06/30/23 13:37 135 H 97 06/30/23 13:32 114 H 97 06/30/23 13:30 18 06/30/23 13:30 98.8 F 18 06/30/23 13:27 105 H 96 06/30/23 13:24 107 H 134/61 87 L 06/30/23 13:22 114 H 96 06/30/23 13:17 115 H 95 06/30/23 13:12 122 H 94 06/30/23 13:10 95 H 105/60 06/30/23 13:08 81 106/55 L 06/30/23 13:07 95 H 95 06/30/23 13:06 104 H 87 L 06/30/23 13:01 99.7 F H 86 18 96 06/30/23 13:00 91 H 87 L 06/30/23 12:55 100 H 96 06/30/23 12:54 100 H 118/58 L 06/30/23 12:51 103 H 84 L 06/30/23 12:50 107 H 96 06/30/23 12:45 98 H 94 06/30/23 12:40 94 06/30/23 12:40 93 H 06/30/23 12:40 90 100/58 L 06/30/23 12:35 103 H 93 06/30/23 12:30 103 H 95 06/30/23 12:25 100 H 94 06/30/23 12:23 100 H 105/60 06/30/23 12:20 94 H 95 06/30/23 12:15 123 H 91 06/30/23 12:10 94 H 93 06/30/23 12:09 83 104/59 L 06/30/23 12:05 94 H 93 06/30/23 12:00 91 H 20 93 06/30/23 11:55 93 06/30/23 11:55 93 H 06/30/23 11:55 84 100/55 L 06/30/23 11:50 97 H 94 06/30/23 11:45 94 H 95 06/30/23 11:40 102 H 95 06/30/23 11:38 96 H 101/58 L 06/30/23 11:35 99 H 95 06/30/23 11:30 98 H 96 06/30/23 11:25 89 95 06/30/23 11:23 88 99/59 L 06/30/23 11:20 100 H 95 06/30/23 11:15 101 H 96 06/30/23 11:10 120 H 97 06/30/23 11:09 125 H 102/56 L 06/30/23 11:05 98 06/30/23 11:05 153 H 06/30/23 11:05 126 H 87 L 06/30/23 11:00 113 H 91 06/30/23 10:58 123 H 88 L 06/30/23 10:57 107 H 117/57 L 06/30/23 10:55 122 H 97 06/30/23 10:50 114 H 95 06/30/23 10:46 109 H 89 L 06/30/23 10:45 109 H 92 06/30/23 10:40 103 H 96 06/30/23 10:39 99 H 89 L 06/30/23 10:35 104 H 96 06/30/23 10:33 105 H 88 L 06/30/23 10:30 142 H 79 L 06/30/23 10:25 97 H 100 06/30/23 10:24 120 H 114/77 06/30/23 10:20 105 H 100 06/30/23 10:15 102 H 99 06/30/23 10:10 95 H 99 06/30/23 10:08 98 H 99/60 L 06/30/23 10:05 93 H 99 06/30/23 10:00 98 H 99 06/30/23 09:55 86 100 06/30/23 09:54 98 H 101/65 06/30/23 09:50 88 100 06/30/23 09:45 99 H 100 06/30/23 09:40 100 H 100 06/30/23 09:39 97 H 103/62 06/30/23 09:35 105 H 100 06/30/23 09:30 91 H 100 06/30/23 09:25 96 06/30/23 09:25 107 H 06/30/23 09:25 90 108/59 L 06/30/23 09:20 131 H 92 06/30/23 09:15 87 96 06/30/23 09:10 89 97 06/30/23 09:09 92 H 101/64 06/30/23 09:05 93 H 96 06/30/23 09:00 92 H 97 06/30/23 08:57 16 06/30/23 08:57 98.6 F 16 06/30/23 08:55 80 97 06/30/23 08:54 86 103/68 06/30/23 08:50 89 96 06/30/23 08:45 93 H 98 06/30/23 08:40 105 H 95 06/30/23 08:39 119 H 85 L 06/30/23 08:38 109/76 06/30/23 08:35 96 H 95 06/30/23 08:34 16 06/30/23 08:34 16 06/30/23 08:30 102 H 94 06/30/23 08:25 94 H 94 06/30/23 08:23 92 H 107/72 06/30/23 08:20 96 H 94 06/30/23 08:17 128 H 85 L 06/30/23 08:15 111 H 94 06/30/23 08:10 103 H 98 06/30/23 08:09 96 H 107/69 06/30/23 08:04 93 H 95 06/30/23 07:59 88 95 06/30/23 07:54 97 06/30/23 07:54 89 06/30/23 07:54 105 H 107/71 06/30/23 07:49 117 H 95 06/30/23 07:44 111 H 87 L 06/30/23 07:39 96 H 108/65 95 06/30/23 07:34 98 H 94 06/30/23 07:29 104 H 94 06/30/23 07:24 107 H 98/59 L 94 06/30/23 07:19 106 H 96 06/30/23 07:14 104 H 96 06/30/23 07:12 16 06/30/23 07:12 98.6 F 16 06/30/23 07:10 113 H 95/52 L 06/30/23 07:09 117 H 97 06/30/23 07:04 126 H 98 06/30/23 07:00 16 06/30/23 07:00 16 06/30/23 07:00 16 06/30/23 07:00 16 06/30/23 06:59 105 H 97 06/30/23 06:54 107 H 106/68 97 06/30/23 06:49 86 97 06/30/23 06:44 97 H 96 06/30/23 06:39 96 H 109/67 96 06/30/23 06:34 129 H 84 L 06/30/23 06:30 18 06/30/23 06:30 18 06/30/23 06:29 113 H 97 06/30/23 06:24 115 H 97 06/30/23 06:23 114 H 111/70 06/30/23 06:19 119 H 96 06/30/23 06:15 98.8 F 06/30/23 06:14 126 H 94 06/30/23 06:09 96 06/30/23 06:09 116 H 06/30/23 06:09 118 H 112/72 06/30/23 06:04 111 H 97 06/30/23 06:00 18 06/30/23 06:00 18 06/30/23 05:59 107 H 96 06/30/23 05:54 103 H 97 06/30/23 05:53 118 H 107/65 06/30/23 05:49 103 H 97 06/30/23 05:44 110 H 96 06/30/23 05:39 100 06/30/23 05:39 118 H 06/30/23 05:39 113 H 105/68 06/30/23 05:34 121 H 100 06/30/23 05:30 18 06/30/23 05:30 18 06/30/23 05:29 130 H 100 06/30/23 05:24 118 H 97 06/30/23 05:23 130 H 107/62 06/30/23 05:19 86 94 06/30/23 05:14 80 94 06/30/23 05:09 94 06/30/23 05:09 83 06/30/23 05:09 81 102/58 L 06/30/23 05:04 81 93 06/30/23 05:00 16 06/30/23 05:00 16 06/30/23 04:59 82 94 06/30/23 04:54 93 H 95 06/30/23 04:53 93 H 104/65 06/30/23 04:49 75 94 06/30/23 04:44 79 94 06/30/23 04:40 80 108/66 06/30/23 04:39 76 96 06/30/23 04:34 79 97 06/30/23 04:30 16 06/30/23 04:30 16 06/30/23 04:29 81 97 06/30/23 04:24 94 H 97 06/30/23 04:23 82 99/61 L 06/30/23 04:19 81 96 06/30/23 04:15 98.6 F 06/30/23 04:14 93 H 97 06/30/23 04:11 93 H 97/61 L 06/30/23 04:09 124 H 95 06/30/23 04:04 91 H 98 06/30/23 04:00 16 06/30/23 04:00 16 06/30/23 03:59 88 94 06/30/23 03:54 94 06/30/23 03:54 83 06/30/23 03:54 75 107/62 06/30/23 03:49 94 H 95 06/30/23 03:44 93 H 94 06/30/23 03:39 92 H 98/54 L 94 06/30/23 03:34 83 94 06/30/23 03:29 93 H 93 06/30/23 03:24 94 06/30/23 03:24 88 06/30/23 03:24 80 99/51 L 06/30/23 03:19 93 H 93 06/30/23 03:14 86 93 06/30/23 03:09 88 91/55 L 93 06/30/23 03:04 109 H 94 06/30/23 02:59 94 H 92 06/30/23 02:54 94 H 94 06/30/23 02:53 94 H 90/54 L 06/30/23 02:49 87 94 06/30/23 02:44 94 H 93 06/30/23 02:39 94 06/30/23 02:39 94 H 06/30/23 02:39 88 100/57 L 06/30/23 02:34 89 93 06/30/23 02:30 16 06/30/23 02:30 16 06/30/23 02:29 94 H 95 06/30/23 02:24 97 H 95 06/30/23 02:23 89 88/53 L 06/30/23 02:19 99 H 95 06/30/23 02:14 104 H 96 06/30/23 02:10 98.2 F 06/30/23 02:09 94 H 103/65 96 06/30/23 02:04 102 H 97 06/30/23 02:00 18 06/30/23 02:00 18 06/30/23 01:59 79 94
[2023-06-30] MEDS ORDERED: diphenhydrAMINE 50 MG/ML VIAL IV PRN (14:37)
[2023-06-30] MEDS ORDERED: ONDANSETRON INJ 2 MG/ML 2 ML VIAL IV PRN ×2 (14:37→15:51)
[2023-06-30] MEDS ORDERED: NALOXONE HCL 1 MG in SODIUM CHLORIDE 0.9% 1,000 ML IV PRN (14:37)
[2023-06-30] MEDS ORDERED: NALBUPHINE HCL 5 MG in SYRINGE 0 ML IV PRN (14:37)
[2023-06-30] MEDS ORDERED: LACTATED RINGER'S 500 ML IV PRN (14:37)
[2023-06-30] MEDS ORDERED: NALOXONE HCL 0.4 MG/1 ML VIAL/CARP IV PRN (14:37)
[2023-06-30] MEDS ORDERED: HYDROmorphone INJ 0.5 MG/0.5 ML SYR IV PRN (14:37)
[2023-06-30] MEDS ORDERED: NALOXONE HCL 0.08 MG in SYRINGE 1.8 ML IV PRN (14:37)
[2023-06-30] MEDS ORDERED: MEPERIDINE HCL 25 MG/ML CARP/VIAL IV PRN (14:37)
[2023-06-30] MEDS ORDERED: ePHEDrine sulfate 50 MG/ML AMP IV PRN (14:37)
[2023-06-30] MEDS ORDERED: DC INTRASPINAL MORPHINE SCH (14:45)
[2023-06-30] MEDS ORDERED: NO NARCOTICS OR SEDATIVES SCH (14:45)
--- NOTE | 2023-06-30 15:18 | Post Operative Brief Note ---
PG Immediate Post Op with CF Date of Surgery June 30, 2023 Pre & Post Diagnosis Operation Date: 06/30/23 14:00 <No data on this case meets the specified criteria> I identified the patient and participated in the time-out.: Yes Procedure Operation Date: 06/30/23 14:00 Actual Procedures p Section in LD with result of live female child at 1424 - Amina Barajas MD, FACOG Surgeon Amina Barajas MD, FACOG Radiator Cleaner Mat Jauregui MD Estimated Blood Loss 1,145 (QBL) Findings Consistent with Post-Op Diagnosis Specimens Specimen Description: A: Placenta (Hod) B: Cord Gases C: Cord Blood Drains Ramírez Catheter (placed in patients LD room) Anesthesia Type L&D Only Epidural Exists Complications none Disposition Accompanied Patient To Recovery: Yes Disposition: L&D
--- NOTE | 2023-06-30 15:28 | Anesthesia Procedure Note ---
Date of Service June 30, 2023 Anesthesia Post Epidural Note Vital Signs Vital Signs: Temp Pulse Resp BP Pulse Ox O2 Del Method 37.1 C 82 18 136/75 100 Room Air 06/30/23 13:30 06/30/23 15:24 06/30/23 13:30 06/30/23 15:24 06/30/23 15:23 06/29/23 19:15 Pain Intensity Bilateral Abdomen: Pain Intensity: 0 Notes Mental Status: alert / awake / arousable and participated in evaluation Nausea / Vomiting: adequately controlled Pain: adequately controlled Airway Patency, RR, SpO2: stable & adequate BP & HR: stable & adequate Hydration State: stable & adequate Neuraxial Anesthesia: was administered and sensory block is resolving Anesthetic Complications: no major complications apparent Epidural: Removed without complications and With tip intact
[2023-06-30] MEDS ORDERED: HYDROCORTISONE ACETATE 25 MG SUPP PR PRN (15:51)
[2023-06-30] MEDS ORDERED: BENZOCAINE 20% SPRY 85 APPLN/85 GM CAN EXT PRN (15:51)
[2023-06-30] MEDS ORDERED: PROMETHAZINE HCL 25 MG in SODIUM CHLORIDE 0.9% 50 ML IV PRN (15:51)
[2023-06-30] MEDS ORDERED: MAGNESIUM HYDROXIDE SUSP 30 ML UDC PO PRN (15:51)
[2023-06-30] MEDS ORDERED: SENNA 8.6 MG TAB PO PRN (15:51)
[2023-06-30] MEDS: OXYTOCIN 20 UNITS/LR 1,002 ML IV SCH (16:16)
--- NOTE | 2023-06-30 16:52 | Operative Report ---
PG Post Operative Report Pre & Post Diagnosis Operation Date: 06/30/23 14:00 Pre-Op Diagnosis: A: Arrest of decent B: Non reasuring heart tracing Post-Op Diagnosis: same as pre op I identified the patient and participated in the time-out.: Yes Procedure Operation Date: 06/30/23 14:00 Actual Procedures p Section in LD with result of live female child at 1424 - Amina Barajas MD, FACOG Surgeon Amina Barajas MD, FACOG [facility] Mat Jauregui MD Estimated Blood Loss 1,145 (QBL) Findings Consistent with Post-Op Diagnosis there was extension of the transverse uterine incision inferiorly along the midline into the lower uterine segment. Specimens placenta to hold Drains Ramírez catheter to straight drainage 100 cc of concentrated urine noted after the case. Anesthesia Type L&D Only Epidural Exists Complications none Disposition Accompanied Patient To Recovery: Yes Disposition: L&D Indications Patient is a 23-year-old 1 P0 female who had spontaneous rupture of membranes at 2 AM on 06/28/2023 induction of labor was begun and she progressed very slowly to full dilation. The labor progress was affected by intermittent deep variable decelerations with certain positions. Patient attempted to push but because the Pitocin had to be stopped and restarted, effectiveness of the contractions was not initially ideal. During the course of the pushing stage, the heart rate began to climb 170 bpm baseline. Because of maternal exhaustion and the ongoing tachycardia, a Kiwi vacuum device was placed on the head. There was no descent of the presenting part through 1 contraction. There was no pop-off of the vacuum. On exam, there been no descent for several hours and suspicion that the was in the OP presentation. At this point the decision was made to move to section for delivery. Description of Procedure After the patient's epidural was redosed, she was prepped and draped in usual sterile fashion. A low transverse skin incision was made with a scalpel and carried to the fascia with the same scalpel. The fascial incision was then extended bluntly. The edges of the fascia were then grasped with Maciej clamps and the underlying rectus muscles bluntly sharply dissected off of the overlying peritoneum. Staying high on the peritoneum, the it was entered initially with Metzenbaum scissors and then bluntly to the peritoneal cavity. The bladder was taken down behind the bladder blade after dissection with Metzenbaum scissors. The lower uterine segment was very thin and entered with a scalpel. The incision was extended transversely with stretching both superiorly and inferiorly. Membranes were ruptured for moderately MEC stained fluid. With the assistance of a vaginal hand the head was dislodged from the pelvis and brought into the abdominal cavity through the incision. The was in occiput posterior presentation. The rest of the delivered with moderate fundal pressure. She was vigorous crying and moving all 4 limbs. The cord was clamped and cut and the was handed off to Dr. French who was in attendance as bobbin winder tender. Of note there was a loop of cord around the infant's ankle but no nuchal or body cord present. The placenta was extracted manually. The uterus was then exteriorized to cover the clean lap sponge. The uterine cavity was explored and some binding retaining membranes were removed. The uterine incision was noted to have extended into the lower uterine segment on the midline. That defect was repaired first with 0 Monocryl. The uterine incision was then closed in a running fashion in 2 layers with 0 Monocryl. Hemostasis appeared to be satisfactory at this time. The posterior cul-de-sac was suctioned for small amount of blood. Pressure was applied to the uterine incision and there was some oozing in the lower portion of the uterine segment. This was controlled with Aiden powder. The gutters were then explored found to be free of any clot or fluid. The uterine incision was examined once more and continue to have excellent hemostasis. The rectus muscle were brought together on the midline with individual stitches of 0 Monocryl. The fascia was reapproximated with 0 Vicryl suture. After irrigating the subcutaneous layer, the skin edges were reapproximated with a subcuticular stitch of 4-0 Vicryl. Patient tolerated the procedure well was stable upon arrival in labor and delive ry. I attest to the content of the Intraoperative Record and any orders documented therein. Any exceptions are noted below. OB Procedure Charges 45302
[2023-06-30] MEDS: SIMETHICONE 80 MG CHEW PO SCH (20:59)
[2023-06-30] MEDS: DOCUSATE SODIUM 100 MG CAP PO SCH (20:59)
[2023-06-30] MEDS: ceFAZolin 2000MG 2,000 MG/15 ML SYR IV SCH (22:11)
[2023-07-01] MEDS: KETOROLAC 30 MG/ML VIAL IV PRN (04:14)
[2023-07-01 06:19] LABS: Basophils # (auto) 0.02 K/uL (0.00-0.20); Basophils % (auto) 0.2 %; Eosinophils # (auto) 0.02 K/uL (0.00-0.50); Eosinophils % (auto) 0.2 %; Hematocrit (blood only) 28.4 % (37.0-47.0); Hemoglobin 9.7 g/dl (12.0-16.0); Immature Granulocytes # (auto) 0.11 K/uL (0.01-0.20); Lymphocytes # (auto) 1.23 K/uL (1.20-3.40); Lymphocytes % (auto) 11.2 %; Mean Corpuscular Hemoglobin 29.2 pg (25.0-34.0); Mean Corpuscular Hgb Conc 34.2 g/dL (32.0-36.0); Mean Corpuscular Volume 85.5 fL (80.0-100.0); Mean Platelet Volume 11.7 fL (9.4-12.4); Monocytes # (auto) 0.82 K/uL (0.11-0.59); Monocytes % (auto) 7.4 %; Neutrophils # (auto) 8.81 K/uL (1.40-6.50); Platelet Count 142 K/uL (130-400); RDW Coefficient of Variation 14.3 % (11.5-14.5); RDW Standard Deviation 44.6 fL (36.4-46.3); Red Blood Count 3.32 M/uL (4.20-5.40); White Blood Count 11.01 K/ul (4.8-10.8)
--- NOTE | 2023-07-01 06:23 | Obstetrical Progress Note ---
Date of Service <Varun Castillo MD - Last Filed: 07/01/23 08:22> July 01, 2023 Assessment & Plan <Varun Castillo MD - Last Filed: 07/01/23 08:22> (1) S/P : Plan 28 yo , status post after trial of labor on 06/30/23. - Pt doing well clinically. Feels well today. Eating well, voiding well, ambulating well. Pain well controlled with PRN pain meds. - Routine care -- OOB, ambulation, diet progression as tolerated Vital Signs reviewed and WNL. (Tmax at 36.8) Hemoglobin Reviewed. 11.1 (06/29/23) 9.7 (today). Blood Type: A+, GBS-, Rubella Immune. Encourage ambulation, monitor and control pain with Motrin PRN, resume regular diet, monitor lochia. Breast feeding encouraged. After discharge will have 6 week follow-up with Dr. Barajas. Pt will be counselled on discharge instructions before going home. They will stay at least one more day. <Amina Barajas MD, FACOG - Last Filed: 07/01/23 08:24> (1) S/P : Subjective <Varun Castillo MD - Last Filed: 07/01/23 08:22> Ambulation: limited ambulation Voiding: parada catheter in place Passing Gas:: No (not yet) Diet Tolerance:: regular diet (cereal so far) Lochia:: Moderate Feeding Type:: breast feeding (giving formula in short term) Constitutional: no fever, no chills, no fatigue or no weakness Ear, Nose, Mouth, Throat: no ear pain, no nasal discharge or no sore throat Respiratory: no cough, no chest congestion or no dyspnea Cardiovascular: + chest pain ( anxiety-induced CP per pt during opeation); no palpitations or no calf pain Gastrointestinal: no abdominal pain, no nausea, no vomiting or no diarrhea/loose stools Genitourinary (female): no dysuria or no urinary frequency (normal - induced increase in freq) Neurologic: + tingling (numbness/tingling, dizziness after epidural placed), + numbness and + dizziness; no headache(s) Physical Exam <Varun Castillo MD - Last Filed: 07/01/23 08:22> Constitutional WD/WN, vitals as above Respiratory normal respiratory effort, lungs clear to auscultation Cardiovascular RRR, no murmur, no edema Extremities: + calf tenderness (mild r. sided calf tenderness, feels like "charley horse") Gastrointestinal (Abdomen) Inspection/Auscultation: abdomen normal to inspection, + abdomen distended (due to ) and normal bowel sounds Psychiatric A+Ox3, euthymic affect Results & Data <Varun Castillo MD - Last Filed: 07/01/23 08:22> Vital Signs (Past 12 Hours) Vital Signs Temp Pulse Resp BP Pulse Ox O2 Del Method 07/01/23 05:49 16 98 07/01/23 04:30 16 98 07/01/23 04:30 36.7 C 88 16 104/68 98 Room Air 07/01/23 03:30 16 97 07/01/23 02:45 16 98 07/01/23 02:05 16 97 07/01/23 01:01 16 97 07/01/23 00:05 36.5 C 98 H 16 111/70 97 Room Air 07/01/23 00:05 16 98 06/30/23 22:22 18 97 06/30/23 21:28 16 96 06/30/23 20:00 16 98 06/30/23 19:30 36.4 C L 85 14 115/63 98 Room Air 06/30/23 19:30 14 98 Supervising Physician <Amina Barajas MD, FACOG - Last Filed: 07/01/23 08:24> Co-Signing Physician Notes Resident Physician Supervision Note: I interviewed and examined the patient. Discussed with Dr. Castillo and agree with findings and plan as documented in the note. Any exceptions or clarifications are listed here: [None] Documented By: Amina Barajas MD, FACOG
[2023-07-01] MEDS: LEVOTHYROXINE SODIUM 50 MCG TABLET PO SCH (07:21)
[2023-07-01] MEDS: LACTATED RINGER'S 1,000 ML IV SCH ×2 (07:46→07:48)
[2023-07-01] MEDS: SODIUM CHLORIDE 0.9% 1,000 ML IV SCH (07:47)
[2023-07-01] MEDS: CITRIC ACID/SODIUM CITRATE 15 ML UDC PO SCH (07:47)
[2023-07-01] MEDS: MoRPHine SULFATE PF 1 MG/ML 10 ML AMP/VIAL EPI ONE (07:47)
[2023-07-01] MEDS: DIPHTHER/TETAN/PERTUS Vaccine (Tdap, Adol/Adult) 0.5mL IM ONE (07:55)
[2023-07-01] MEDS ORDERED: Nursing to Pharmacy Communication SCH (08:00)
[2023-07-01] MEDS ORDERED: MEPERIDINE HCL 50 MG/ML CARP IV PRN (08:38)
[2023-07-01] MEDS ORDERED: diphenhydrAMINE 50 MG/ML VIAL IV PRN (08:38)
[2023-07-01] MEDS ORDERED: oxyCODONE/ACETAMINOPHEN 5mg/325mg TAB PO PRN (08:38)
[2023-07-01] MEDS ORDERED: diphenhydrAMINE Capsule 25 MG CAP PO PRN (08:38)
[2023-07-01] MEDS: IBUPROFEN 600 MG TAB PO PRN (09:15)
[2023-07-01] MEDS: PRENATAL VITAMIN 1 TAB PO SCH (09:17)
[2023-07-01] MEDS: FERROUS SULFATE 325 MG TAB PO SCH (09:17)
[2023-07-01] MEDS: bisacodyL 5 MG TABEC PO SCH (20:16)
[2023-07-02 06:41] LABS: Hematocrit (blood only) 26.5 % (37.0-47.0); Hemoglobin 8.9 g/dl (12.0-16.0)
--- NOTE | 2023-07-02 06:47 | Obstetrical Progress Note ---
Date of Service <Varun Castillo MD - Last Filed: 07/02/23 08:07> July 02, 2023 Assessment & Plan <Varun Castillo MD - Last Filed: 07/02/23 08:07> (1) S/P : Plan 23 yo , status post after trial of labor on 06/30/23. - Pt doing well clinically. Feels well today. Eating well, voiding well, ambulating well. Pain well controlled with PRN pain meds.Patient continues to feel residual decreased sensation in the pelvic area. Had urinary retention after removal of her Parada catheter yesterday so the Parada was placed again. Plan for Parada removal with observation for normal urinary output today. - Routine care -- OOB, ambulation, diet progression as tolerated Vital Signs reviewed and WNL. (Tmax at 36.8) Hemoglobin Reviewed. 11.1 (06/29/23) 9.7 (07/01/23), 8.9 (today). Blood Type: A+, GBS-, Rubella Immune. Encourage ambulation, monitor and control pain with Motrin PRN, resume regular diet, monitor lochia. Breast feeding encouraged. After discharge will have 6 week follow-up with Dr. Barajas. Pt will be counselled on discharge instructions before going home. <Mat Jauregui MD - Last Filed: 07/02/23 08:43> (1) S/P : Subjective <Varun Castillo MD - Last Filed: 07/02/23 08:07> Ambulation: ambulating normally Voiding: parada catheter in place Passing Gas:: No (pt still w/ residual numbness in pelvic area) Diet Tolerance:: regular diet Lochia:: Small Feeding Type:: breast feeding Current Pain Level(1-10): 5 (diffuse soreness in belly) Constitutional: no fever, no chills, no fatigue or no weakness Ear, Nose, Mouth, Throat: no ear pain, no nasal discharge or no sore throat Respiratory: no cough, no chest congestion or no dyspnea Cardiovascular: + chest pain ( anxiety-induced CP per pt during opeation); no palpitations or no calf pain Gastrointestinal: no abdominal pain, no nausea, no vomiting or no diarrhea/loose stools Genitourinary (female): no dysuria or no urinary frequency (normal - induced increase in freq) Neurologic: + tingling (numbness/tingling, dizziness after epidural placed), + numbness and + dizziness; no headache(s) Physical Exam <Varun Castillo MD - Last Filed: 07/02/23 08:07> Constitutional WD/WN, vitals as above Respiratory normal respiratory effort, lungs clear to auscultation Cardiovascular RRR, no murmur, no edema Extremities: + calf tenderness (mild r. sided calf tenderness, feels like "charley horse") Gastrointestinal (Abdomen) Inspection/Auscultation: abdomen normal to inspection, + abdomen distended (due to ) and normal bowel sounds Psychiatric A+Ox3, euthymic affect <Mat Jauregui MD - Last Filed: 07/02/23 08:43> Gastrointestinal (Abdomen) Inspection/Auscultation: + abdomen distended (Significantly tympanic consistent with an ileus) Incision clean, dry and intact Results & Data <Varun Castillo MD - Last Filed: 07/02/23 08:07> Vital Signs (Past 12 Hours) Vital Signs Temp Pulse Resp BP Pulse Ox O2 Del Method 07/01/23 23:30 36.6 C 103 H 20 105/69 99 Room Air 07/01/23 20:30 36.5 C 105 H 18 101/68 99 Room Air Supervising Physician <Mat Jauregui MD - Last Filed: 07/02/23 08:43> Co-Signing Physician Notes Day 2 status post a primary for arrest of descent. Course has been complicated by urine retention and will remove Parada catheter today and will attempt another voiding trial. Patient is noted to have significant abdominal pain and tenderness. Abdomen was noted to be significantly distended and tympanic consistent with an ileus. Minimal bowel sounds appreciated. Patient reports that she is not passing gas that she is aware of. Discussed the fin dings on exam and the likely diagnosis of an ileus. Discussed that we will switch her to full liquid diet. Will schedule an extensive bowel regiment until bowel movements start. Continue to monitor
[2023-07-02] MEDS: bisacodyL 10 MG SUPP PR STA (09:03)
[2023-07-02] MEDS: POLYETHYLENE (MIRALAX) 17 GM PACK PO SCH (09:04)
[2023-07-02] MEDS: MAGNESIUM HYDROXIDE SUSP 30 ML UDC PO SCH (09:04)
[2023-07-02] MEDS: KETOROLAC 30 MG/ML VIAL IV PRN (13:20)
--- NOTE | 2023-07-02 14:42 | Obstetrical Progress Note ---
Date of Service July 02, 2023 Assessment & Plan Admission and Anticipated Discharge Date Admission Date: June 29, 2023 Subjective Patient has passed small amount of unformed stool, states she is passing some gas. Has not really urinated much. Will check with bladder scan - aware that if unable to get urine out, may recommend replacing the parada. Abdomen on exam remains distended, but has improved since this morning. Nontender. Incision CDI. Advised that she continue clears for now, recommend ambulation. Results & Data Vital Signs (Past 12 Hours) Vital Signs Temp Pulse Resp BP O2 Del Method 07/02/23 07:55 36.4 C L 85 16 111/77 Room Air PG Care Time/CCT Total # of Minutes Spent Total Time Spent with Patient: Total time spent is greater than 50% in coordination of care (as documented) at patient's floor/unit and/or counseling patient: Coding Level of Care Code None
[2023-07-02] MEDS ORDERED: bisacodyL 10 MG SUPP PR PRN (15:51)
--- NOTE | 2023-07-03 06:09 | Obstetrical Progress Note ---
Date of Service <Varun Castillo MD - Last Filed: 07/03/23 07:46> July 03, 2023 Assessment & Plan <Varun Castillo MD - Last Filed: 07/03/23 07:46> (1) S/P : Plan 23 yo , status post after trial of labor on 06/30/23. - Pt doing well clinically. Feels well today. Eating well, still has Parada catheter in after a few attempts at removal, ambulating well. Pain well controlled with PRN pain meds.Patient continues to feel residual decreased sensation in the pelvic area. Had urinary retention after removal of her Parada catheter yesterday so the Parada was placed again for second time. Plan for Parada removal with observation for normal urinary output again today. Bowel movements since yesterday may also help relieve that urinary retention. - Routine care -- OOB, ambulation, diet progression as tolerated Vital Signs reviewed and WNL. (Tmax at 36.8) Hemoglobin Reviewed. 11.1 (06/29/23) 9.7 (07/01/23), 8.9 (yesterday), 9.1 (today). Blood Type: A+, GBS-, Rubella Immune. Encourage ambulation, monitor and control pain with Motrin PRN, resume regular diet, monitor lochia. Breast feeding encouraged. After discharge will have 6 week follow-up with Dr. Barajas. Pt will be counselled on discharge instructions before going home, in the event she goes home today. <Leona Hercules DO - Last Filed: 07/03/23 08:25> (1) S/P : Subjective <Varun Castillo MD - Last Filed: 07/03/23 07:46> Ambulation: ambulating normally Voiding: parada catheter in place Passing Gas:: Yes Diet Tolerance:: clear liquids (full liquids) Lochia:: Small Feeding Type:: breast feeding (temporarily using formula) Current Pain Level(1-10): 2 (pain worse w/ constipation/gas) Constitutional: no fever, no chills, no fatigue or no weakness Ear, Nose, Mouth, Throat: no ear pain, no nasal discharge or no sore throat Respiratory: no cough, no chest congestion or no dyspnea Cardiovascular: no chest pain ( anxiety-induced CP per pt during opeation), no palpitations or no calf pain Gastrointestinal: + diarrhea/loose stools (loose stools during first BM; not typical for pt); no abdominal pain, no nausea or no vomiting Genitourinary (female): no dysuria or no urinary frequency (normal - induced increase in freq) Neurologic: + tingling (numbness/tingling, dizziness after epidural placed), + numbness and + dizziness; no headache(s) Physical Exam <Varun Castillo MD - Last Filed: 07/03/23 07:46> Constitutional WD/WN, vitals as above Respiratory normal respiratory effort, lungs clear to auscultation Cardiovascular RRR, no murmur, no edema Extremities: + calf tenderness (mild r. sided calf tenderness, feels like "charley horse") Gastrointestinal (Abdomen) Inspection/Auscultation: abdomen normal to inspection, + abdomen distended (due to ) and normal bowel sounds Psychiatric A+Ox3, euthymic affect Genitourinary + CVA tenderness (mild CVA tenderness/back pain as pt feels more post- anesthesia) Results & Data <Varun Castillo MD - Last Filed: 07/03/23 07:46> Vital Signs (Past 12 Hours) Vital Signs Temp Pulse Resp BP Pulse Ox O2 Del Method 07/02/23 22:58 36.7 C 71 18 117/72 97 Room Air 07/02/23 19:55 Room Air 07/02/23 19:26 37.1 C 90 18 116/75 99 Room Air Supervising Physician <Leona Hercules DO - Last Filed: 07/03/23 08:25> Co-Signing Physician Notes Resident Physician Supervision Note: I interviewed and examined the patient. Discussed with Dr. Castillo and agree with findings and plan as documented in the note. Any exceptions or clarifications are listed here: POD#3 s/p section with postoperative ileus and urinary retention. This morning, parada is in place and draining adequately - good urine output. She has had 3 bowel movements overnight - describes them as large. Starting to feel better. Feels like she can feel pelvis better than yesterday - feeling less numb. Tolerating full liquid diet. Would like to go home today if possible. Abdomen on exam is still distended, but less so than yesterday. Nontender. Incision CDI. Will plan for increase diet today to regular, she'd also like to do a bladder trial this afternoon - feels like she may be able to urinate on her own today since she can feel pelvis better. Aware that if unable to urinate, would then go home with a parada. Reviewed DC instructions. Declines offer of PO pain meds rx. Documented By: Leona Hercules, DO
[2023-07-03 06:24] LABS: Hematocrit (blood only) 27.7 % (37.0-47.0); Hemoglobin 9.1 g/dl (12.0-16.0)
== END 2023-07-03 16:40 | disposition home or self-care (01) | DRG 787 ==
LOC: 4S1 05:16 → 4E2 06-30 18:15
DX: Z79.890 Hormone replacement therapy; Z37.0 Single live birth; O76 Abnormality in fetal heart rate and rhythm complicating labor and delivery; O75.81 Maternal exhaustion complicating labor and delivery; O62.1 Secondary uterine inertia; Z3A.40 40 weeks gestation of pregnancy; O86.29 Other urinary tract infection following delivery; O66.40 Failed trial of labor, unspecified; R33.9 Retention of urine, unspecified; O42.02 Full-term premature rupture of membranes, onset of labor within 24 hours of rupture; O77.0 Labor and delivery complicated by meconium in amniotic fluid